=== PATIENT | male | born 1960 | race Caucasian/White ===

== ENCOUNTER 2022-10-22 09:57 | Emergency (ER) | payer BC, SELFPAY ==
--- NOTE | ~2022-10-22 | CT_ITS ---
EXAMINATION: CT brain wo con DATE: 10/22/2022 12:10 INDICATION: Foot drop. TECHNIQUE: Computed tomography (CT) of the head was performed without intravenous contrast. The dose- length product was 605.33 mGy-cm. Automated exposure control and iterative reconstruction technique w ere employed. COMPARISON: None FINDINGS: There is prominent CSF space along the posterior margin of the cerebellum which is isodense to CSF. This may represent atypical appearance secondary to cerebellar atrophy versus chronic subdur al hygroma or hematoma. No ventriculomegaly or midline shift. Normal locke-white differentiation. Ther e is mucosal thickening of the paranasal sinuses. There are surgical changes of the left sphenoid sin us anteriorly. Mastoids are pneumatized. No depressed skull fractures. Midline sagittal images are un remarkable. No acute infarction, hemorrhage or mass. IMPRESSION: 1. Prominent fluid isodense to CSF along the posterior margin of the cerebellum. Mild mass effect. Th is may represent atypical appearance secondary to cerebellar atrophy versus chronic subdural hygroma or hematoma. 2: Moderate sinus disease. Reviewed, dictated and finalized at location A. GRINDER AND POLISHER IMPRESSION: 1. Prominent fluid isodense to CSF along the posterior margin of the cerebellum . Mild mass effect. This may represent atypical appearance secondary to cerebel lar atrophy versus chronic subdural hygroma or hematoma. 2: Moderate sinus disease.
--- NOTE | ~2022-10-22 | XR_ITS ---
EXAMINATION: XR chest 1V DATE: 10/22/2022 12:05 INDICATION: Left facial weakness. TECHNIQUE: A single frontal view of the chest was obtained. COMPARISON: Chest CT 01/01/18 FINDINGS: There is no pneumonia, pleural effusion, or pneumothorax. The heart size is normal. Calcifi ed right hilar lymph nodes are consistent with old granulomatous disease. IMPRESSION: 1. No acute cardiopulmonary disease. Reviewed, dictated and finalized at location A. AL MERCHANDISE MANAGER
[2022-10-22 11:34] VITALS: BP 168/91; PULSE 70; RESP 18; TEMP 36.6; O2SAT 98
--- NOTE | 2022-10-22 11:46 | ECG_ITS ---
Measurements Intervals [place] Rate: 73 P: 64 TN: 140 QRS: 16 QRSD: 85 T: 65 QT: 381 QTc: 422 Interpretive Statements SINUS RHYTHM FREQUENT VENTRICULAR PREMATURE COMPLEXES BORDERLINE R WAVE PROGRESSION, ANTERIOR LEADS BASELINE ARTIFACT- I, II, AVR ABNORMAL ECG NO PREVIOUS ECG AVAILABLE FOR COMPARISON Electronically Signed On 10-22-2022 17:36:34 CHEESE PROCESSOR by Obed Lira D.O.
[2022-10-22 12:04] LABS: Basophils Percent Auto 0.6 % (0.2-1.2); Eosinophils Absolute Auto 0.1 K/mm3 (0-0.3); Eosinophils Percent Auto 1.2 % (0-4.4); Hematocrit 44.9 % (42.0-52.0); Hemoglobin 15.5 g/dL (14.0-18.0); Immature Granulocyte Absolute 0.02 K/mm3 (0.00-0.031); Immature Granulocyte Percent A 0.3 % (0-0.5); Lymphocytes Absolute Auto 1.46 K/mm3 (0.9-3.2); Lymphocytes Percent Auto 21.5 % (18.3-44.2); Mean Corpuscular HGB Conc 34.5 g/dl (32-36); Mean Corpuscular Hemoglobin 33.4 pg (26-34); Mean Corpuscular Volume 96.8 fl (80-100); Mean Platelet Volume 10.5 fl (7.4-10.4); Monocytes Absolute Auto 0.7 K/mm3 (0.1-0.6); Neutrophils Absolute Auto 4.5 K/mm3 (1.3-6.7); Neutrophils Percent Auto 66.4 % (45.5-73.1); Platelet Count Result 201 k/mm3 (150-375); Red Blood Count 4.64 M/mm3 (4.6-6.20); Red Cell Distribution Width 11.5 % (11.5-14.5); White Blood Count 6.8 K/mm3 (4.5-10.0)
[2022-10-22 12:16] LABS: Alanine Aminotransferase 20 U/L (6-50); Albumin Level 4.4 g/dL (3.5-5.1); Alkaline Phosphatase 73 U/L (38-126); Anion Gap 9 mmol/L (8-16); Aspartate Amino Transferase 30 U/L (17-59); Bilirubin,Total 0.6 mg/dL (0.2-1.3); Blood Urea Nitrogen 16 mg/dL (9-20); Calcium 8.7 mg/dL (8.4-10.2); Carbon Dioxide 25 mmol/L (22-30); Chloride 104 mmol/L (98-107); Estimated CRCL calculation 68 ml/min; Estimated Glomerular Filt Rate > 60; Glucose 97 mg/dL (65-110); Potassium 4.6 mmol/L (3.4-5.0); Sodium 138 mmol/L (137-145)
[2022-10-22 12:18] LABS: Prothrombin Time 12.7 Seconds (11.1-14.7)
[2022-10-22 12:19] LABS: Partial Thromboplastin Time 26.3 SECONDS (22.3-36.8)
[2022-10-22 12:28] LABS: Troponin I < 0.012 ng/mL (0.000-0.034)
[2022-10-22 13:04] VITALS: BP 190/107; PULSE 79; RESP 18; O2SAT 100
[2022-10-22 13:06] VITALS: PULSE 77
[2022-10-22 13:17] VITALS: BP 162/108; PULSE 78; RESP 13; O2SAT 97
--- NOTE | 2022-10-22 13:34 | ED.NEUROSD ---
HPI - Neuro Symptoms/Deficit General Chief Complaint: Neuro Symptoms/Deficit Stated Complaint: left droop since saturday Time Seen by Provider: 10/22/22 13:34 Source: patient Mode of arrival: ambulatory Limitations: no limitations History of Present Illness HPI Narrative: Patient is a 62-year-old male with borderline hypertension presenting to the emergency department for evaluation of left-sided facial droop. Patient reports onset of symptoms 5 days ago, , with gradual worsening over the past 5 days. Patient reports associated left facial numbness without tingling sensation. States that he does have some sensation in the left side of the face although it is less when compared to the right. Patient denies recent viral infection but does report recent influenza vaccination 12 days ago. Patient denies fever, chills, cough, shortness of breath. Denies chest pain, abdominal pain. Denies extremity weakness or numbness. No difficulty with ambulation. He denies headache pain or neck pain. Patient denies history of CVA. No recent viral infection. Denies history of herpetic infection, vesicles or blisters on his face currently. Related Data Home Medications Medication Instructions Recorded Confirmed [id number] 120 mcg-lutein tablet PO 08/06/22 150 mcg-herb 50 mg chewable tablet (Alive Men's 50 Plus Multivitamin) aspirin 81 mg chewable tablet 10/22/22 Allergies Allergy/AdvReac Type Severity Reaction Status Date / Time No Known Allergies Allergy Verified 10/22/22 11:36 Review of Systems Review of Systems: CONSTITUTIONAL: Denies fever, chills, or sweats. EYES: Denies visual changes, redness, or discharge. ENT: Denies rhinorrhea, congestion, sore throat, or otalgia. CARDIOVASCULAR: Denies chest pain, palpitations, or edema. RESPIRATORY: Denies cough or dyspnea. GASTROINTESTINAL: Denies abdominal pain, nausea, vomiting, or diarrhea. GENITOURINARY: Denies dysuria or hematuria. SKIN: Denies rash or itching. MUSCULOSKELETAL: Denies back pain, joint pain, or myalgia. NEUROLOGIC: Denies headache, left facial numbness, reports left-sided facial droop, denies extremity weakness or numbness PMFSH Family History Family History Father Family history of heart disease in male family member before age 55, Onset Age: 58 Sibling Hypertension Family history of elevated blood lipids Family history of cardiovascular disease Social History Social History Smoking status: Smoker, status unknown Second hand tobacco smoke exposure: Yes Alcohol intake: current Exam Narrative: GENERAL: Awake, alert, conversant HEAD: Normocephalic, atraumatic. EYES: PERRLA and EOMI. ENT: Nares clear, no rhinorrhea or epistaxis. Mucous membranes moist. NECK: Supple. CHEST: No respiratory distress, breathing even and non labored HEART: Regular rate, sinus rhythm ABDOMEN:Non distended, non tender EXTREMITIES: Normal range of motion. No edema. SKIN: Warm, dry, no rash. NEURO: Alert and oriented x3. Finger to nose intact bilaterally. EOMs intact without nystagmus. There is left-sided facial droop that includes the forehead. Grimace is asymmetric. Intact gross sensation in face. Hearing intact bilaterally. Shoulder shrug intact. Strength 5/5 bilateral upper extremities. Strength 5/5 bilateral lower extremities. Reflexes 2+ patellar. Heel to baker intact bilaterally. Ambulatory exam deferred. Course Vital Signs Vital signs: Vital Signs Temperature 36.6 C 10/22/22 11:34 Pulse Rate 70 10/22/22 11:34 Respiratory Rate 18 10/22/22 11:34 Blood Pressure 168/91 H 10/22/22 11:34 Pulse Oximetry 98 10/22/22 11:34 Oxygen Delivery Room Air 10/22/22 11:34 Temperature 36.6 C 10/22/22 11:34 Pulse Rate 94 10/22/22 15:20 Respiratory Rate 18 10/22/22 15:20 Blood Pressure 148/89 H 10/22/22 1
[2022-10-22 15:20] VITALS: BP 148/89; PULSE 94; RESP 18; O2SAT 100
== END 2022-10-22 15:51 | disposition home or self-care (01) ==
PROVIDERS: Family Medicine; Emergency Provider Emergency Medicine; PCP Emergency Medicine
DX: G51.0 Bell's palsy (principal); G93.0 Cerebral cysts; Z77.22 Contact with and (suspected) exposure to environmental tobacco smoke (acute) (chronic); I49.3 Ventricular premature depolarization; R94.31 Abnormal electrocardiogram [ECG] [EKG]
CPT/HCPCS: 36415; 70450; 71045; 80053; 84484; 85025; 85610; 85730; 93005; 99284

== ENCOUNTER 2023-12-23 08:34 | Outpatient (CLI) | payer BC, SELFPAY ==
--- NOTE | 2023-12-23 08:37 | EST_ITS ---
Patient Info Name: Allen Chinchilla Age: 63 years : 1960 Gender: Male Ht: 70 in Wt: 175 lbs BSA: 1.99 m2 HR: 79 bpm BP: 117 / 78 mmHg Heart Rhythm: Sinus Rhythm Exam Date: 12/23/2023 8:48 AM Exam Location: Echo Lab Patient Status: Outpatient Admit Date: 12/23/2023 Staff Ordering Physician: Allen Humphrey MD Attending Provider: Allen Humphrey MD Exercise Technologist: Rika Henao [facility] Exercise Physician: Obed Lira DO Exam Type: CA stress test treadmill Study Info A treadmill exercise stress test was performed. Summary 1. 1. Negative Ab exercise stress test for ischemic ST changes by ECG criteria. 2. 2. Reduced functional capacity, achieving 7 METs of workload. 3. 3. Appropriate HR response to exercise. 4. 4. Appropriate HR recovery at 1 minute post exercise. 5. 5. No imaging with stress testing. 6. 6. Patient informed of the above results. Protocol: Ab Stress ECG Details Stage: REST Duration (min): 1 min : 9 sec Speed (mph): 0.0 Grade (%): 0 HR (bpm): 79 SBP (mmHg): 117 DBP (mmHg): 78 METS: --- Stage: REST Duration (min): 6 min : 39 sec Speed (mph): 0.0 Grade (%): 0 HR (bpm): 78 SBP (mmHg): 117 DBP (mmHg): 78 METS: --- Stage: STAGE 1 Duration (min): 1 min : 0 sec Speed (mph): 1.7 Grade (%): 10 HR (bpm): 103 SBP (mmHg): 117 DBP (mmHg): 78 METS: --- Stage: STAGE 1 Duration (min): 2 min : 0 sec Speed (mph): 1.7 Grade (%): 10 HR (bpm): 111 SBP (mmHg): 117 DBP (mmHg): 78 METS: --- Stage: STAGE 1 Duration (min): 3 min : 0 sec Speed (mph): 1.7 Grade (%): 10 HR (bpm): 116 SBP (mmHg): 155 DBP (mmHg): 72 METS: --- Stage: STAGE 2 Duration (min): 1 min : 0 sec Speed (mph): 2.5 Grade (%): 12 HR (bpm): 125 SBP (mmHg): 155 DBP (mmHg): 72 METS: --- Stage: STAGE 2 Duration (min): 2 min : 0 sec Speed (mph): 2.5 Grade (%): 12 HR (bpm): 136 SBP (mmHg): 170 DBP (mmHg): 76 METS: --- Stage: STAGE 2 Duration (min): 3 min : 0 sec Speed (mph): 2.5 Grade (%): 12 HR (bpm): 143 SBP (mmHg): 170 DBP (mmHg): 76 METS: --- Stage: RECOVERY Duration (min): 0 min : 59 sec Speed (mph): 0.0 Grade (%): 0 HR (bpm): 130 SBP (mmHg): 185 DBP (mmHg): 73 METS: --- Stage: RECOVERY Duration (min): 1 min : 59 sec Speed (mph): 0.0 Grade (%): 0 HR (bpm): 107 SBP (mmHg): 185 DBP (mmHg): 73 METS: --- Stage: RECOVERY Duration (min): 2 min : 59 sec Speed (mph): 0.0 Grade (%): 0 HR (bpm): 98 SBP (mmHg): 182 DBP (mmHg): 83 METS: --- Stage: RECOVERY Duration (min): 3 min : 37 sec Speed (mph): 0.0 Grade (%): 0 HR (bpm): 93 SBP (mmHg): 182 DBP (mmHg): 83 METS: --- Rest HR: 78 bpm Peak HR: 144 bpm Rest Sys BP: 117 mmHg Peak Sys BP: 185 mmHg Max Pred HR: 155 bpm % Max Pred HR: 93 % Target HR: 132 bpm Max RPP: 26,640 bpm*mmHg Mg Score: 1 Terminat
[2023-12-23 09:51] LABS: Hematocrit 47.7 % (42.0-52.0); Hemoglobin 15.4 g/dL (14.0-18.0); Mean Corpuscular HGB Conc 32.3 g/dl (32-36); Mean Corpuscular Hemoglobin 30.6 pg (26-34); Mean Corpuscular Volume 94.8 fl (80-100); Mean Platelet Volume 10.7 fl (7.4-10.4); Platelet Count Result 195 k/mm3 (150-375); Red Blood Count 5.03 M/mm3 (4.6-6.20); White Blood Count 6.1 K/mm3 (4.5-10.0)
[2023-12-23 10:36] LABS: Alanine Aminotransferase 31 U/L (6-50); Albumin Level 4.4 g/dL (3.5-5.1); Alkaline Phosphatase 92 U/L (38-126); Anion Gap 6 mmol/L (8-16); Aspartate Amino Transferase 33 U/L (17-59); Bilirubin,Total 0.5 mg/dL (0.2-1.3); Blood Urea Nitrogen 22 mg/dL (9-20); Calcium 9.3 mg/dL (8.4-10.2); Carbon Dioxide 27 mmol/L (22-30); Chloride 106 mmol/L (98-107); Cholesterol 210 mg/dL (0-200); Estimated Glomerular Filt Rate > 60; Glucose 102 mg/dL (65-110); HDL Direct 42 mg/dL; Potassium 4.4 mmol/L (3.4-5.0); Sodium 139 mmol/L (137-145); Triglycerides 95 mg/dL (<150)
[2023-12-23 10:47] LABS: LDL Cholesterol Direct 138 mg/dL
[2023-12-23 10:48] LABS: Vitamin D 25 Hydroxy 34.8 ng/mL
[2023-12-23 11:43] LABS: Folic Acid > 20.0 ng/mL (2.76->20)
== END 2023-12-23 08:35 | disposition home or self-care (01) ==
PROVIDERS: PCP Emergency Medicine; Visit Provider Emergency Medicine
DX: R53.83 Other fatigue (principal); I10 Essential (primary) hypertension; E55.9 Vitamin D deficiency, unspecified; Z13.220 Encounter for screening for lipoid disorders; Z12.5 Encounter for screening for malignant neoplasm of prostate; R94.31 Abnormal electrocardiogram [ECG] [EKG]
CPT/HCPCS: 36415; 80053; 80061; 82306; 82607; 82746; 84153; 85027; 93017; G0103

== ENCOUNTER 2024-06-02 08:13 | Outpatient (CLI) | payer BC, SELFPAY ==
--- NOTE | ~2024-06-02 | XR_ITS ---
XR chest 2V Ordering provider: Allen Humphrey MD History: 64 years Male with . YEARLY RECHECK ON LEFT LUNG DENSITY . Comparison: October 22, 2022 FINDINGS: MEDIASTINUM: The cardiac silhouette is not enlarged. LUNGS: No infiltrates, effusions or pneumothorax. OTHER: No free air under the diaphragm. Degenerative changes of the spine. IMPRESSION: No acute cardiopulmonary pathology. Reviewed, dictated and finalized at location A.
== END 2024-06-02 08:14 | disposition home or self-care (01) ==
PROVIDERS: PCP Emergency Medicine; Visit Provider Emergency Medicine
DX: I89.8 Other specified noninfective disorders of lymphatic vessels and lymph nodes (principal)
CPT/HCPCS: 71046

== ENCOUNTER 2024-07-06 09:58 | Outpatient (CLI) | payer BC, SELFPAY ==
--- NOTE | ~2024-07-06 | XR_ITS ---
XR chest 2V Ordering provider: Elisa Meneses, RUNNER ON History: 64 years Male with . HX OF PNEUMONIA . Comparison: June 02, 2024 FINDINGS: MEDIASTINUM: The cardiac silhouette is not enlarged. LUNGS: No effusions or pneumothorax. Bilateral perihilar prominent markings with infiltrate in the pe rihilar and lower lobe areas suggestive of pneumonia. Patchy areas are seen in the upper lobes. OTHER: No free air under the diaphragm. Degenerative changes of the spine. No IMPRESSION: Bilateral lower lobe pneumonia. Follow-up to resolution is advised. Reviewed, dictated and finalized at location A.
== END 2024-07-06 09:59 | disposition home or self-care (01) ==
LOC: ANHIMG 10:00
PROVIDERS: PCP Emergency Medicine; Visit Provider Nurse Practitioner Adult Health
DX: J18.9 Pneumonia, unspecified organism (principal)
CPT/HCPCS: 71046

== ENCOUNTER 2024-07-06 13:49 | Emergency (ER) | payer BC, SELFPAY ==
[2024-07-06] VITALS (10 sets, daily range): BP systolic 130–177; BP diastolic 68–91; PULSE 74–88; RESP 12–33; TEMP 37.1; O2SAT 96–100
--- NOTE | 2024-07-06 14:01 | ED.ALLEREA ---
HPI - Allergic Reaction General Chief complaint: Allergic Reaction Stated complaint: allergic reaction Time Seen by Provider: 07/06/24 13:57 History of Present Illness HPI narrative: Pt took mucinex about 3 hrs ago for congetsion and started to feel like throat was swelling about 30 minutes later. Pt says it did not improved so he called 911. Pt given benadryl IV in route. Pt also had cxr done here earlier today and was told he had pneumonia. Pt denies CP or SOB. Related Data Home Medications Medication Instructions Recorded Confirmed aspirin 81 mg chewable tablet 81 mg PO DAILY 10/22/22 06/23/24 acetaminophen 325 mg tablet 650 mg PO Q6H PRN Pain 06/23/24 06/23/24 Allergies Allergy/AdvReac Type Severity Reaction Status Date / Time No Known Allergies Allergy Verified 06/23/24 16:24 Review of Systems Review of Systems: All systems reviewed & are unremarkable except as noted in HPI and below PMFSH Past Medical History Medical History (Updated 07/06/24 @ 15:55 by Manny Vance III, DO) At risk for hepatitis Chest pain Chronic emphysema syndrome COPD mixed type Debility Nicotine dependence, unspecified, uncomplicated Paresthesia of both hands Solitary pulmonary nodule Vitamin D deficiency Family History Family History Father Family history of heart disease in male family member before age 55, Onset Age: 58 Sibling Hypertension Family history of elevated blood lipids Family history of cardiovascular disease Social History Social History Smoking packs per day: 2 Smoking cigarettes per day: 40.0 Smoking status: Former smoker Tobacco type: cigarettes Second hand tobacco smoke exposure: Yes Smoking end date: 06/12/24 Alcohol intake: former Substance use: never Do You Feel Safe in your Home?: Yes Lack of Transportation: No Lack of Food: Never True Current Housing: I Have Housing Concerned About Future Housing: No Difficulty Paying Gas/Electric Bills: No Difficulty Paying for Meds: No Currently Unemployed: No Education: Associate Degree Difficulty w/ Childcare or Family Care: No Spiritual care concerns: No Exam Const: General: healthy appearing and no acute distress Nutritional Appearance: well nourished Orientation/consciousness: patient oriented x3 Limitations: no limitations HENMT: Head: normal to inspection Face/Nose/Sinus: Normal external nose present Mouth: Yes Normal oral and palatal mucosa present and Yes moist mucous membranes Throat: posterior oropharynx normal Eyes: Conjunctivae: conjunctivae normal Pupils: Equal, round and reactive pupils present EOM: EOMs intact bilaterally Neck: Neck: normal visual inspection Resp: Effort & Inspection: normal respiratory effort Auscultation: clear to auscultation bilaterally Cardio: Rate: regular rate Rhythm: regular rhythm GI: GI Palp: Yes Soft to palpation and No Tenderness to palpation present (GI) Auscultation: normal bowel sounds Skin: General skin exam: normal color Rashes: no rashes Wounds: no wounds Neuro: General: patient oriented x3, moves all extremities, no focal motor deficits and CN's II-XI intact bilaterally Cranial nerves: Yes Nystagmus not present Speech: normal speech Extrem: General: normal to inspection Psych: Mental Status: mental status grossly normal Affect: normal affect Attitude: cooperative Course Vital Signs Vital signs: Vital Signs Temperature 98.8 F 07/06/24 13:53 Pulse Rate 87 07/06/24 13:53 Respiratory Rate 23 H 07/06/24 13:53 Blood Pressure 177/91 H 07/06/24 13:53 Pulse Oximetry 98 07/06/24 13:53 Oxygen Delivery Room Air 07/06/24 13:53 Temperature 98.8 F 07/06/24 17:11 Pulse Rate 88 07/06/24 17:11 Respiratory Rate 19 07/06/24 17:11 Blood Pressure 130/73 07/06/24 17:11 Pulse Oximetry 97
[2024-07-06] MEDS: methylPREDNISolone SOD SUCC 125 MG VIAL IV PUSH (14:07)
[2024-07-06] MEDS: FAMOTIDINE 20 MG/2 ML VIAL IV PUSH (14:07)
[2024-07-06] MEDS: IPRATROPIUM 0.5 MG/ALBUTEROL SULFATE 2.5 MG AMPUL.NEB 3 ML INHALATION (14:28)
[2024-07-06 15:11] LABS: Lactic Acid Reflex 1.5 mmol/L (0.7-2.0)
[2024-07-06] MEDS: levoFLOXacin 750 MG/D5W 150 ML 750 MG/150 ML BAG 100 MG IVPB (15:18)
[2024-07-06 15:30] LABS: Basophils Absolute Auto 0.1 K/mm3 (0.0-0.1); Basophils Percent Auto 0.8 % (0.2-1.2); Eosinophils Absolute Auto 0.1 K/mm3 (0-0.3); Eosinophils Percent Auto 0.8 % (0-4.4); Hematocrit 36.6 % (42.0-52.0); Hemoglobin 11.4 g/dL (14.0-18.0); Immature Granulocyte Absolute 0.04 K/mm3 (0.00-0.031); Immature Granulocyte Percent A 0.5 % (0-0.5); Lymphocytes Absolute Auto 0.69 K/mm3 (0.9-3.2); Lymphocytes Percent Auto 9.1 % (18.3-44.2); Mean Corpuscular HGB Conc 31.1 g/dl (32-36); Mean Corpuscular Hemoglobin 29.1 pg (26-34); Mean Corpuscular Volume 93.4 fl (80-100); Mean Platelet Volume 9.3 fl (7.4-10.4); Monocytes Percent Auto 13.6 % (2.6-8.5); Neutrophils Absolute Auto 5.7 K/mm3 (1.3-6.7); Neutrophils Percent Auto 75.2 % (45.5-73.1); Platelet Count Result 423 k/mm3 (150-375); Red Blood Count 3.92 M/mm3 (4.6-6.20); White Blood Count 7.6 K/mm3 (4.5-10.0)
[2024-07-06 15:39] LABS: Prothrombin Time 14.1 Seconds (11.1-14.7)
[2024-07-06 15:49] LABS: Alanine Aminotransferase 28 U/L (6-50); Alkaline Phosphatase 146 U/L (38-126); Anion Gap 12 mmol/L (4-12); Aspartate Amino Transferase 33 U/L (17-59); Bilirubin,Total 0.7 mg/dL (0.2-1.3); Blood Urea Nitrogen 16 mg/dL (9-20); CRP 2.4 mg/dL (<1.0); Calcium 8.6 mg/dL (8.4-10.2); Carbon Dioxide 25 mmol/L (22-30); Chloride 98 mmol/L (98-107); Estimated CRCL calculation 61 ml/min; Estimated Glomerular Filt Rate > 60; Glucose 129 mg/dL (65-110); Potassium 3.5 mmol/L (3.4-5.0); Sodium 135 mmol/L (137-145)
== END 2024-07-06 17:12 | disposition home or self-care (01) ==
PROVIDERS: Emergency Provider Emergency Medicine; PCP Emergency Medicine
DX: R22.1 Localized swelling, mass and lump, neck (principal); T48.4X5A Adverse effect of expectorants, initial encounter; J18.9 Pneumonia, unspecified organism; J43.9 Emphysema, unspecified; J44.9 Chronic obstructive pulmonary disease, unspecified; E55.9 Vitamin D deficiency, unspecified; Z87.891 Personal history of nicotine dependence; Z79.82 Long term (current) use of aspirin; Z79.899 Other long term (current) drug therapy; Z79.02 Long term (current) use of antithrombotics/antiplatelets
CPT/HCPCS: 36415; 71046; 80053; 83605; 85025; 85610; 85730; 86140; 87040; 94640; 96365; 96375; 99284; J1956; J2919

== ENCOUNTER 2024-10-08 12:31 | Emergency (ER) | payer BC, SELFPAY ==
--- NOTE | ~2024-10-08 | CT_ITS ---
EXAMINATION: CT soft tissue neck w con DATE: 10/08/2024 15:22 INDICATION: Left submandibular edema. TECHNIQUE: Computed tomography (CT) of the neck was performed with 75 mL Omnipaque-350 intravenous co ntrast. Automated exposure control and iterative reconstruction technique were employed. The dose-beverly gth product was 541.38 mGy-cm. COMPARISON: None FINDINGS: There is moderate emphysema. The major salivary glands are normal. There are no pathologica lly enlarged lymph nodes. There is plaque in the proximal internal carotid arteries with 0% stenosis relative to normal distal artery lumen diameters. There is plate and screw fixation of anterior wall of left frontal sinus. There is mild mucosal thickening in the paranasal sinuses. There is severe cer vical spondylosis. IMPRESSION: 1. No etiology for the patient's symptoms. Reviewed, dictated and finalized at location A. MACHINIST
[2024-10-08 12:42] VITALS: BP 118/62; PULSE 66; RESP 19; TEMP 36.3; O2SAT 99
--- NOTE | 2024-10-08 14:12 | ED_ITS ---
HPI - General Adult General Chief complaint: Unspecified <Gill Valdez PA-C - Last Filed: 10/08/24 14:14> Stated complaint: swelling in neck <Gill Valdez PA-C - Last Filed: 10/08/24 14:14> Time Seen by Provider: 10/08/24 16:58 <Gill Valdez PA-C - Last Filed: 10/08/24 14:14> Focused HPI: 64-year-old male with history of CAD, mi in May 2024, s/p cardiac stent placement in 2023 presents to emergency department for left submandibular swelling for 10 days. Patient states the swelling has progr essively worsened. He states he is now having difficulty breathing when he turns his neck to the left and puts pressure on the area. Denies sore throat, dental pain, facial pain. States he has never had this happen before. He does note that he started isosorbide 2 weeks prior to the symptom, otherwise no medication changes. GENERAL: Well-appearing, well-nourished, and in no acute distress. HEAD: Normocephalic, atraumatic. Mild left-sided submandibular edema. No dental caries. Floor mouth is soft or crepitus. Posterior pharynx is unremarkable. Airway intact. CHEST: Clear to auscultation. ?No respiratory distress. HEART: Regular rate and rhythm.? NEURO: ?Alert and oriented x3. Patient screened in triage and initial orders placed.? ?Additional care and disposition to be based upon?diagnostic testing and treatment. <Gill Valdez PA-C - Last Filed: 10/08/24 14:14> Focused HPI: 64-year-old male with history of CAD, mi in May 2024, s/p cardiac stent placement in 2023 presents to emergency department for left submandibular swelling for 10 days. Patient states the swelling has progressively worsened. He states he is now having difficulty breathing when he turns his neck to the left and puts pressure on the area. Denies sore throat, dental pain, facial pain. States he has never had this happen before. He does note that he started isosorbide 2 weeks prior to the symptom, otherwise no medication changes. GENERAL: Well-appearing, well-nourished, and in no acute distress. HEAD: Normocephalic, atraumatic. Mild left-sided submandibular edema. No dental caries. Floor mouth is soft or crepitus. Posterior pharynx is unremarkable. Airway intact. CHEST: Clear to auscultation. ?No respiratory distress. HEART: Regular rate and rhythm.? NEURO: ?Alert and oriented x3. Patient screened in triage and initial orders placed.? ?Additional care and disposition to be based upon?diagnostic testing and treatment. <GABY Rausch Last Filed: 10/08/24 18:31> Source: patient <GABY Rausch Last Filed: 10/08/24 18:31> Mode of arrival: ambulatory <GABY Rausch Filed: 10/08/24 18:31> Limitations: no limitations <GABY Rausch Last Filed: 10/08/24 18:31> History of Present Illness HPI narrative: Agree with above HPI. <GABY Rausch Last Filed: 10/08/24 18:31> Related Data Home medications: Home Medications Medication Instructions Recorded Confirmed aspirin 81 mg chewable tablet 81 mg PO DAILY 10/22/22 07/20/24 acetaminophen 500 mg tablet 1,000 mg PO Q6H PRN 07/07/24 07/20/24 (Acetaminophen Extra Strength) food supplemt, lactose-reduced 1 ea PO DAILY 07/07/24 07/20/24 (Ensure oral liquid) [id number] 120 mcg-lutein 1 tablet PO DAILY 07/07/24 07/20/24 150 mcg-herb 50 mg chewable tablet (Alive Men's 50 Plus Multivitamin) amiodarone 200 mg tablet (Pacerone) 200 mg PO DAILY 07/20/24 <GABY Martinez Last Filed: 10/08/24 14:14> Allergies/adverse reactions: Allergies Allergy/AdvReac Type Severity Reaction Status Date / Time guaifenesin [From Mucinex] Allergy Severe Hives Verified 07/20/24 15:33 <GABY Martinez Last Filed: 10/08/24 14:14> Review of Systems Review of Systems: All systems reviewed & are unremarkable except as noted in HPI. <Hallie Back PA-C - Last Filed: 10/08/24 18:31> All systems reviewed & are unremarkable except as noted in HPI and below <Hallie Back PA-C - Last Filed: 10/08/24 18:31> PMFSH Past Medical History Medical History: Medical History At risk for hepatitis Chest pain Chronic emphysema syndrome COPD mixed type Debility Nicotine dependence, unspecified, uncomplicated Paresthesia of both hands Solitary pulmonary nodule Vitamin D deficiency <Gill Valdez PA-C - Last Filed: 10/08/24 14:14> Family History Family History: Family History Father Family history of heart disease in male family member before age 55, Onset Age: 58 Family history of cardiovascular disease Sibling Family history of cardiovascular disease Family history of elevated blood lipids Hypertension Diabetes mellitus Breast cancer <Gill Valdez PA-C - Last Filed: 10/08/24 14:14> Social History Social History: Social History Smoking packs per day: 2 Smoking cigarettes per day: 40.0 Years smoked: 50 Smoking pack-years: 100.00 Smoking status: Former smoker Tobacco type: cigarettes Second hand tobacco smoke exposure: Yes Smoking end date: 06/13/24 Alcohol intake: former Substance use: never Do You Feel Safe in your Home?: Yes Lack of Transportation: No Lack of Food: Never True Current Housing: I Have Housing Concerned About Future Housing: No Difficulty Paying Gas/Electric Bills: No Difficulty Paying for Meds: No Currently Unemployed: No Education: Trade/Vocational Certificate Difficulty w/ Childcare or Family Care: No Spiritual care concerns: No <Gill Valdez PA-C - Last Filed: 10/08/24 14:14> Exam Narrative: GENERAL: Well appearing, well-nourished, non-toxic, in no acute distress. HEAD: Normocephalic, atraumatic. ENT: Area of loose skin vs submandibular swelling in L anterior neck. No palpable lymphadenopathy, induration, fluctuance, no overlying skin erythema or warmth. No overlying skin rash. No stridor distress. No trismus. No inner mucosal lesions or swelling. RESPIRATORY: Airway patent, respirations nonlabored. No distress. CARDIOVASCULAR: Regular rate and rhythm without murmurs, rubs, or gallops. MUSCULOSKELETAL: Moves all extremities. No gross deformities. SKIN: Warm, dry, normal color. NEURO: A&O X3. Speech clear PSYCHIATRIC: Appropriate mood and affect. Normal interaction. <GABY Rausch Last Filed: 10/08/24 18:31> Course Vital Signs Vital signs: Vital Signs Temperature 97.3 F L 10/08/24 12:42 Pulse Rate 66 10/08/24 12:42 Respiratory Rate 19 10/08/24 12:42 Blood Pressure 118/62 10/08/24 12:42 Pulse Oximetry 99 10/08/24 12:42 Temperature 97.8 F 10/08/24 17:07 Pulse Rate 59 L 10/08/24 17:07 Respiratory Rate 20 10/08/24 17:07 Blood Pressure 120/74 10/08/24 17:07 Pulse Oximetry 98 10/08/24 17:07 Oxygen Delivery Room Air 10/08/24 16:57 <GABY Martinez Last Filed: 10/08/24 14:14> Vital Signs Temperature 97.3 F L 10/08/24 12:42 Pulse Rate 66 10/08/24 12:42 Respiratory Rate 19 10/08/24 12:42 Blood Pressure 118/62 10/08/24 12:42 Pulse Oximetry 99 10/08/24 12:42 Temperature 97.8 F 10/08/24 17:07 Pulse Rate 59 L 10/08/24 17:07 Respiratory Rate 20 10/08/24 17:07 Blood Pressure 120/74 10/08/24 17:07 Pulse Oximetry 98 10/08/24 17:07 Oxygen Delivery Room Air 10/08/24 16:57 <GABY Rausch Filed: 10/08/24 18:31> Medical Decision Making MDM Narrative Medical decision making narrative: Patient presented to ED with 10 day history of left submandibular swelling. Vital signs are stable upon arrival. Patient is in no acute distress. Exam is fairly unremarkable. Appears more as loose skin in left submandibular region versus actual swelling. There is no palpable deformities. No pain or tenderness. No evidence of airway compromise or respiratory distress. No mucosal concerns. No other peripheral edema. Basic laboratory studies were obtained unremarkable. No leukocytosis. CT soft tissue neck was obtained and abnormalities noted. No lymphadenopathy. Salivary glands are normal. No airway swelling. No abnormality of internal carotid artery. Discussed lab and imaging findings, overall reassuring workup with patient. Patient and at bedside were able to look up several pictures of patient throughout the past few months and into last year and patient has had similar swelling documented in these pictures. He notes that he has gained weight to recently which may also be attributing to this being more pronounced. Feel he is safe for discharge home with close outpatient follow-up. Advised to have follow-up with PCP for further evaluation. Given return precautions. Discharged in stable condition. <Hallie Back PA-C - Last Filed: 10/08/24 18:31> Medical Records Medical records reviewed: Yes I reviewed the external patient's medical records. <Hallie whitaker PA-C - Last Filed: 10/08/24 18:31> Vital Signs Vital Signs: Vital Signs Temperature 97.3 F L 10/08/24 12:42 Pulse Rate 66 10/08/24 12:42 Respiratory Rate 19 10/08/24 12:42 Blood Pressure 118/62 10/08/24 12:42 Pulse Oximetry 99 10/08/24 12:42 Temperature 97.8 F 10/08/24 17:07 Pulse Rate 59 L 10/08/24 17:07 Respiratory Rate 20 10/08/24 17:07 Blood Pressure 120/74 10/08/24 17:07 Pulse Oximetry 98 10/08/24 17:07 Oxygen Delivery Room Air 10/08/24 16:57 <Gill Valdez PA-C - Last Filed: 10/08/24 14:14> Vital Signs Temperature 97.3 F L 10/08/24 12:42 Pulse Rate 66 10/08/24 12:42 Respiratory Rate 19 10/08/24 12:42 Blood Pressure 118/62 10/08/24 12:42 Pulse Oximetry 99 10/08/24 12:42 Temperature 97.8 F 10/08/24 17:07 Pulse Rate 59 L 10/08/24 17:07 Respiratory Rate 20 10/08/24 17:07 Blood Pressure 120/74 10/08/24 17:07 Pulse Oximetry 98 10/08/24 17:07 Oxygen Delivery Room Air 10/08/24 16:57 <Hallie Back PA-C - Last Filed: 10/08/24 18:31> Lab Data Lab results reviewed: Yes I reviewed the patient's lab results. <Hallie Back PA-C - Last Filed: 10/08/24 18:31> Result diagrams: 10/08/24 15:10 10/08/24 15:16 <GABY Martinez Last Filed: 10/08/24 14:14> Labs: Lab Results 10/08/24 10/08/24 Range/Units 15:10 15:16 WBC 7.0 (4.5-10.0) K/mm3 RBC 4.42 L (4.6-6.20) M/mm3 Hgb 13.7 L (14.0-18.0) g/dL Hct 40.8 L (42.0-52.0) % MCV 92.3 (80-100) fl MCH 31.0 (26-34) pg MCHC 33.6 (32-36) g/dl RDW 12.5 (11.5-14.5) % Plt Count 217 (150-375) k/mm3 MPV 10.3 (7.4-10.4) fl Immature Gran % (Auto) 0.1 (0-0.5) % Neut % (Auto) 60.2 (45.5-73.1) % Lymph % (Auto) 23.4 (18.3-44.2) % [place] % (Auto) 13.6 H (2.6-8.5) % Eos % (Auto) 2.0 (0-4.4) % Baso % (Auto) 0.7 (0.2-1.2) % Lymph # (Auto) 1.63 (0.9-3.2) K/mm3 [place] # (Auto) 1.0 H (0.1-0.6) K/mm3 Eos # (Auto) 0.1 (0-0.3) K/mm3 Baso # (Auto) 0.1 (0.0-0.1) K/mm3 Abs Immat Gran (auto) 0.01 (0.00-0.031) K/mm3 Absolute Neuts (auto) 4.2 (1.3-6.7) K/mm3 Absolute Nucleated RBC 0.000 (0.0-0.012) K/mm3 Nucleated RBC % 0.0 (0.0-0.2) % Sodium 137 (137-145) mmol/L Potassium 4.4 (3.4-5.0) mmol/L Chloride 101 (98-107) mmol/L Carbon Dioxide 29 (22-30) mmol/L Anion Gap 7 (4-12) mmol/L BUN 16 (9-20) mg/dL Creatinine 1.10 1.30 (0.7-1.3) mg/dL Estim Creat Clear Calc 61 52 ml/min Estimated GFR > 60 55 L (59 - ) Glucose 136 H (65-110) mg/dL Calcium 9.3 (8.4-10.2) mg/dL Total Bilirubin 0.5 (0.2-1.3) mg/dL AST 39 (17-59) U/L ALT 40 (6-50) U/L Alkaline Phosphatase 88 (38-126) U/L Total Protein 8.0 (6.3-8.2) g/dL Albumin 4.4 (3.5-5.1) g/dL <Gill Valdez PA-C - Last Filed: 10/08/24 14:14> Lab Results 10/08/24 10/08/24 Range/Units 15:10 15:16 WBC 7.0 (4.5-10.0) K/mm3 RBC 4.42 L (4.6-6.20) M/mm3 Hgb 13.7 L (14.0-18.0) g/dL Hct 40.8 L (42.0-52.0) % MCV 92.3 (80-100) fl MCH 31.0 (26-34) pg MCHC 33.6 (32-36) g/dl RDW 12.5 (11.5-14.5) % Plt Count 217 (150-375) k/mm3 MPV 10.3 (7.4-10.4) fl Immature Gran % (Auto) 0.1 (0-0.5) % Neut % (Auto) 60.2 (45.5-73.1) % Lymph % (Auto) 23.4 (18.3-44.2) % [place] % (Auto) 13.6 H (2.6-8.5) % Eos % (Auto) 2.0 (0-4.4) % Baso % (Auto) 0.7 (0.2-1.2) % Lymph # (Auto) 1.63 (0.9-3.2) K/mm3 [place] # (Auto) 1.0 H (0.1-0.6) K/mm3 Eos # (Auto) 0.1 (0-0.3) K/mm3 Baso # (Auto) 0.1 (0.0-0.1) K/mm3 Abs Immat Gran (auto) 0.01 (0.00-0.031) K/mm3 Absolute Neuts (auto) 4.2 (1.3-6.7) K/mm3 Absolute Nucleated RBC 0.000 (0.0-0.012) K/mm3 Nucleated RBC % 0.0 (0.0-0.2) % Sodium 137 (137-145) mmol/L Potassium 4.4 (3.4-5.0) mmol/L Chloride 101 (98-107) mmol/L Carbon Dioxide 29 (22-30) mmol/L Anion Gap 7 (4-12) mmol/L BUN 16 (9-20) mg/dL Creatinine 1.10 1.30 (0.7-1.3) mg/dL Estim Creat Clear Calc 61 52 ml/min Estimated GFR > 60 55 L (59 - ) Glucose 136 H (65-110) mg/dL Calcium 9.3 (8.4-10.2) mg/dL Total Bilirubin 0.5 (0.2-1.3) mg/dL AST 39 (17-59) U/L ALT 40 (6-50) U/L Alkaline Phosphatase 88 (38-126) U/L Total Protein 8.0 (6.3-8.2) g/dL Albumin 4.4 (3.5-5.1) g/dL <Hallie Back PA-C - Last Filed: 10/08/24 18:31> Imaging Data Attestation: I personally reviewed and interpreted this imaging study as follows: < Hallie Back PA-C - Last Filed: 10/08/24 18:31> Radiologist's impression: ITS Impressions Soft Tissue Neck CT 10/08/24 15:23 IMPRESSION: 1. No etiology for the patient's symptoms. <Hallie Back PA-C - Last Filed: 10/08/24 18:31> Discharge Plan Discharge Clinical Impression: Submandibular swelling <GABY Martinez Last Filed: 10/08/24 14:14> Patient Disposition: Home, Self-Care <GABY Martinez Last Filed: 10/08/24 14:14> Condition: Stable <Gill Valdez PA-C - Last Filed: 10/08/24 14:14> Instructions: Antibiotic Form, Lymphadenopathy (ED) <Gill Valdez PA-C - Last Filed: 10/08/24 14:14> Additional Instructions: Your work up here was reassuring. Your imaging did not show any ab normalities within your neck. Follow-up with your primary care doctor for further evaluation. Recommend to take pictures to monitor swelling. You may try warm compresses to neck to help with swelling. Return to the ED if you experience worsening or severe symptoms/swelling, difficulty breathing, unable to keep down food or drink, or any other symptoms of concern. <Gill Valdez PA-C - Last Filed: 10/08/24 14:14> Prescriptions: No Action Ensure Liquid 1 ea PO DAILY acetaminophen [Acetaminophen Extra Strength] 500 mg tablet 1,000 mg PO Q6H PRN Alive Men's 50 Plus Multivit 120 mcg-150 mcg -50 mg tablet,chewable 1 tablet PO DAILY amiodarone [Pacerone] 200 mg tablet 200 mg PO DAILY atorvastatin 80 mg tablet 80 mg PO HS Qty: 90 2RF furosemide 20 mg tablet 20 mg PO [id number] Qty: 180 2RF benzonatate 200 mg capsule 200 mg PO TID Qty: 20 0RF aspirin 81 mg Tablet,Chewable 81 mg PO DAILY ramelteon 8 mg tablet See Rx Instructions .ROUTE .COMPLEX Qty: 90 2RF Dose Instruction: TAKE 1 TABLET BY MOUTH AT BEDTIME Rx Instructions: TAKE 1 TABLET BY MOUTH AT BEDTIME Brilinta 90 mg tablet 90 mg PO BID Qty: 180 2RF carvedilol [Coreg] 3.125 mg Tablet 6.25 mg PO BIDAC Qty: 60 0RF <Gill Valdez PA-C - Last Filed: 10/08/24 14:14> Follow-up/Referrals: Allen Humphrey MD [Primary Care Provider] - <Gill Valdez PA-C - Last Filed: 10/08/24 14:14> Time of Disposition: 17:38 <Gill Valdez PA-C - Last Filed: 10/08/24 14:14> 17:38 <Hallie Back PA-C - Last Filed: 10/08/24 18:31>
[2024-10-08 15:17] LABS: Basophils Absolute Auto 0.1 K/mm3 (0.0-0.1); Basophils Percent Auto 0.7 % (0.2-1.2); Eosinophils Absolute Auto 0.1 K/mm3 (0-0.3); Hematocrit 40.8 % (42.0-52.0); Hemoglobin 13.7 g/dL (14.0-18.0); Immature Granulocyte Absolute 0.01 K/mm3 (0.00-0.031); Immature Granulocyte Percent A 0.1 % (0-0.5); Lymphocytes Absolute Auto 1.63 K/mm3 (0.9-3.2); Lymphocytes Percent Auto 23.4 % (18.3-44.2); Mean Corpuscular HGB Conc 33.6 g/dl (32-36); Mean Corpuscular Volume 92.3 fl (80-100); Mean Platelet Volume 10.3 fl (7.4-10.4); Monocytes Percent Auto 13.6 % (2.6-8.5); Neutrophils Absolute Auto 4.2 K/mm3 (1.3-6.7); Neutrophils Percent Auto 60.2 % (45.5-73.1); Platelet Count Result 217 k/mm3 (150-375); Red Blood Count 4.42 M/mm3 (4.6-6.20); Red Cell Distribution Width 12.5 % (11.5-14.5)
[2024-10-08 15:17] LABS: Estimated CRCL calculation 52 ml/min; Estimated Glomerular Filt Rate 55
[2024-10-08 15:35] LABS: Alanine Aminotransferase 40 U/L (6-50); Albumin Level 4.4 g/dL (3.5-5.1); Alkaline Phosphatase 88 U/L (38-126); Anion Gap 7 mmol/L (4-12); Aspartate Amino Transferase 39 U/L (17-59); Bilirubin,Total 0.5 mg/dL (0.2-1.3); Blood Urea Nitrogen 16 mg/dL (9-20); Calcium 9.3 mg/dL (8.4-10.2); Carbon Dioxide 29 mmol/L (22-30); Chloride 101 mmol/L (98-107); Estimated CRCL calculation 61 ml/min; Estimated Glomerular Filt Rate > 60; Glucose 136 mg/dL (65-110); Potassium 4.4 mmol/L (3.4-5.0); Sodium 137 mmol/L (137-145)
[2024-10-08 16:57] VITALS: BP 120/74; PULSE 58; RESP 20; TEMP 36.6; O2SAT 98
[2024-10-08 17:06] VITALS: RESP 20; O2SAT 98
[2024-10-08 17:07] VITALS: BP 120/74; PULSE 59; RESP 20; TEMP 36.6; O2SAT 98
== END 2024-10-08 18:00 | disposition home or self-care (01) ==
PROVIDERS: Physician Assistant; Emergency Provider Physician Assistant; PCP Emergency Medicine
DX: R22.1 Localized swelling, mass and lump, neck (principal); I25.10 Atherosclerotic heart disease of native coronary artery without angina pectoris; I25.2 Old myocardial infarction; E55.9 Vitamin D deficiency, unspecified; Z87.891 Personal history of nicotine dependence
CPT/HCPCS: 36415; 70491; 80053; 85025; 99284; Q9967

== ENCOUNTER 2024-11-02 11:15 | Outpatient (RCR) | payer BC, SELFPAY | END 2024-11-23 07:54 | disposition home or self-care (01) | LOC: ANHCPREHAB 11:15 | PROVIDERS: PCP Emergency Medicine; Visit Provider Internal Medicine Cardiovascular Disease | DX: Z98.61 Coronary angioplasty status (principal) | CPT/HCPCS: 93798 ==

== ENCOUNTER 2025-01-20 13:07 | Outpatient (CLI) | payer BC, SELFPAY ==
--- NOTE | ~2025-01-20 | CT_ITS ---
EXAMINATION:CT diagnostic chest wo con DATE: 01/20/2025 14:53 INDICATION: Other forms of dyspnea. TECHNIQUE: Computed tomography (CT) of the chest was performed without intravenous contrast. Automate d exposure control and iterative reconstruction technique were employed. The dose-length product (DLP ) was 147.05 mGy-cm. COMPARISON: Chest CT 01/01/2018 FINDINGS: There is severe emphysema. There are many scattered 2-3 mm nodules in the lungs, likely kurt ign. There is mild atelectasis bilaterally. Calcified right lung nodules and calcified right hilar ly mph nodes are consistent with old edematous disease. No pleural effusion. The heart size is normal. T here are coronary artery calcifications. No pericardial effusion. There is a small sliding hiatal her merlin. Calcifications in the liver and spleen are consistent with old granulomatous disease. There is m ild chronic anterior wedging of the vertebral bodies. There is moderate thoracic spondylosis and shayne re lumbar spondylosis. IMPRESSION: 1. Severe emphysema. 2. Worsened many scattered 2-3 mm nodules in the lungs, likely infection. Reviewed, dictated and finalized at location A. CHARGE BOOKKEEPER
--- OUTSIDE RECORDS SUMMARY | 2025-01-20 14:43 | XMS_ITS | Clinical Summary ---
Author Organization [facility] Address [address] [place] [id number] Care Team Providers Care Rib Knitter Name Role Phone Unavailable Primary Care Provider Unavailabl e Social History Tobacco Use Types Packs/Day Years Used Date Smoking Tobacco: Never Assessed Sex and Gender Information Value Date Recorded Sex Assigned at Not on file Legal Sex Male 11:16 AM EDT Gender Identity Not on file Sexual Orientation Not on file Plan of Treatment Not on file
--- OUTSIDE RECORDS SUMMARY | 2025-01-20 14:43 | XMS_ITS | Referral Summary ---
Author Organization [facility] Virtual Care Address [address] [place] [address] Phone Care Team Providers Care Shade Classifier Name Role Phone Allen Humphrey MD Primary Care Provide r Allen Humphrey MD Unavailable [phone] Encounters Date Type Department Care Team Description 01/13/2025 10:00 AM WIRE FRAME DIPPER Office Visit [facility] Cardiology [address] [place] [address] [place] [address] [phone] Ricci Mclain MD Coronary artery disease involving [place] coronary artery of [place] heart without angina pectoris (Primary Dx); History of ST elevation myocardial infarction (STEMI); Status post angioplasty with stent; History of sudden cardiac arrest successfully resuscitated; Shortness of breath; History of tobacco abuse 11/03/2024 11:15 AM WIRE FRAME DIPPER Ancillary Procedure [facility] Cardiology [address] [place] [address] [place] [address] [phone] elevation myocardial infarction (STEMI) 10/28/2024 Telephone [facility] Cardiology [address] [place] [address] [place] [address] [phone] Jose Meneses NP return to work letter 10/26/2024 8:30 AM WIRE FRAME DIPPER Office Visit [facility] Medical Group Cardiology [address] [place] [address] Jose Meneses NP History of ST elevation myocardial infarction (STEMI) (Primary Dx); Coronary artery disease of [place] artery of [place] heart with stable angina pectoris (HCC); Recently quit using tobacco; Shortness of breath; Chest pressure from Last 3 Months Allergies Active Allergy Reactions Criticality Noted Date Comments Guaifenesin Angioedema High 08/31/2024 Medications ticagrelor (BRILINTA) 90 mg tabletIndicati ons:Coronary artery disease involving [place] coronary artery of [place] heart without angina pectoris Take 1 tablet (90 mg total) by mouth 2 (two) times a day 180 tablet 3 07/06/20 24 Active atorvastatin (LIPITOR) 80 mg tabletIndicati ons:Coronary artery disease involving [place] coronary artery of [place] heart without angina pectoris Take 1 tablet (80 mg total) by mouth nightly 90 tablet 3 07/06/20 24 2024 Active carvediloL (COREG) 6.25 mg tabletIndicati ons:Coronary artery disease involving [place] coronary artery of [place] heart without angina pectoris TAKE 1 TABLET BY MOUTH TWICE DAILY WITH MEALS 180 tablet 2 12/30/19 25 Active aspirin 81 mg enteric coated tablet Take 1 tablet (81 mg total) by mouth daily 30 tablet 01/13/20 25 2025 Active losartan (COZAAR) 25 mg tablet Take 1 tablet (25 mg total) by mouth daily 30 tablet 01/13/20 25 2025 Active empagliflozin (JARDIANCE) 10 mg tablet Take 1 tablet (10 mg total) by mouth daily 30 tablet 01/13/20 25 Active spironolactone (ALDACTONE) 25 mg tablet Take 1 tablet (25 mg total) by mouth daily 30 tablet 01/13/20 25 2025 Active aspirin 81 mg chewable tablet Take 1 tablet (81 mg total) by mouth daily 30 tablet 3 06/23/20 24 2024 Discontinued(A lternate therapy) albuterol 2.5 mg /3 mL (0.083 %) nebulizer solution Take 3 mL (2.5 mg total) by nebulization every 6 (six) hours as needed for wheezing 06/22/20 24 2024 Discontinued(P atient Reported) nitroglycerin (NITROSTAT) 0.[address] 1 tablet (0.4 mg total) under the tongue every 5 (five) minutes as needed for chest pain May repeat dose q 5 min, up to 3 doses total 25 tablet 2 09/17/20 24 2024 Discontinued(T herapy completed) isosorbide mononitrate ER (IMDUR) 60 mg 24 hr tablet Take 1 tablet (60 mg total) by mouth daily 30 tablet 11 09/25/20 24 2024 Discontinued(T herapy completed) carvediloL (COREG) 6.25 mg tabletIndicati ons:Coronary artery disease involving [place] coronary artery of [place] heart without angina pectoris Take 1 tablet (6.25 mg total) by mouth 2 (two) times a day with meals 180 tablet 11/19/20 24 2024 Discontinued Active Problems Problem Noted Date Diagnosed Date Anoxic brain damage 06/16/2024 Ventricular fibrillation (CMS/HCC) 06/13/2024 Social History Tobacco Use Types Packs/Day Years Used Date Smoking Tobacco: Former Cigarettes 1.5 15 Q uit: 06/13/2024 Smokeless Tobacco: Never [facility] [employer] Answer Date Recorded In the past 12 months has [employer]ons[employer], gas, oil, or water [employer] threatened to shut off services in your home? No 06/15/2024 Social Connection and Isolat ion Panel [NHANES] Answer Date Recorded In a typical week, how many times do you talk on the phone with family, friends, or neighbors? More than three times a week 06/15/2024 How often do you get togethe r with friends or relatives? More than three times a week 06/15/2024 How often do you attend chur ch or church services? Never 06/15/2024 Do you belong to any clubs o r organizations such as latter day groups, unions, fraternal or athletic groups, or school groups? No 06/15/2024 How often do you attend meet ings of the clubs or organizations you belong to? Never 06/15/2024 Are you , , di vorced, , never , or living with a partner? 06/15/2024 Overall Financial Resource Strain (CARDIA) Answe r Date Recorded How hard is it for you to pa y for the very basics like food, housing, medical care, and heating? Not hard at all 06/15/2024 Hunger Vital Sign Answer Date Recorded Within the past 12 months, y ou worried that your food would run out before you got the money to buy more. Never true 06/15/20 24 Within the past 12 months, t he food you bought just didn't last and you didn't have money to get more. Never true 06/15/2024 PRAPARE - Transportation Answer Date Re corded In the past 12 months, has l ack of transportation kept you from medical appointments or from getting medications? No 05/26 In the past 12 months, has l ack of transportation kept you from meetings, work, or from getting things needed for daily living? No 06/15/2024 Housing Stability Vital Sign Answer Srini e Recorded In the last 12 months, was t here a time when you were not able to pay the mortgage or rent on time? No 06/15/2024 In the past 12 months, how m any times have you moved where you were living? 0 06/15/2024 At any time in the past 12 m onths, were you homeless or living in a penitentiary (including now)? No 06/15/2024 Personal Safety Answer Date Recorded Have you ever been in or are you currently in a harmful physical or emotional relationship or is someone making you feel afraid or unsafe? Patient unable to answer 06/14/2024 Sex and Gender Information Value Date Recorded Sex Assigned at Not on file Legal Sex Male 1:37 AM CDT Gender Identity Male 06/15/2024 9:47 AM CDT Sexual Orientation Not on file Last Filed Vital Signs Vital Sign Reading Time Taken Comments Blood Pressure 132/56 01/13/2025 9:40 AM WIRE FRAME DIPPER Pulse 70 01/13/2025 9:40 AM WIRE FRAME DIPPER Temperature 36.5 C (97.7 F) 06/23/2024 8:25 AM CDT Respiratory Rate 19 06/23/2024 8:25 AM CDT Oxygen Saturation 98% 01/13/2025 9:40 AM WIRE FRAME DIPPER Inhaled Oxygen Concentration - - Weight 95.3 kg (210 lb) 01/13/2025 9:40 AM WIRE FRAME DIPPER Height 175.3 cm (5' 9 ) 01/13/2025 9:40 AM WIRE FRAME DIPPER Body Mass Index 31.01 01/13/2025 9:40 AM WIRE FRAME DIPPER Plan of Treatment Not on file Medical Devices Implanted Type Area Strategy Specialist Device Identifier Shelf Expiration Date Model / Serial / Lot Medtronic Card Vasc Surgery 3.0 X 18mm [employer] [place] Rx Coronary Stent [id number] - [id number] Implanted:Qty: 1 on 06/13/2024 by Ricci Mclain MD at [facility] Vasc Surgery 04/02/2027 [id number] / / [id number] Mynx Control 6-7fr 2 Mode Balloon Catheter Sealant Lock Syringe [id number] - [id number] Implanted:Qty: 1 on 06/13/2024 by Ricci Mclain MD at [facility] [employer] 09/24/2024 [id number] / / [id number] [employer] System Closure Repair Femoral Artery Suture Mediated Perclose Prostyle 12492-45 - [id number] Implanted:Qty: 1 on 06/13/2024 by Ricci Mclain MD at [facility] [employer] 03/24/2026 [id number] / / [id number] [employer] System Closure Repair Femoral Artery Suture Mediated Perclose Prostyle 58512-37 - [id number] Implanted:Qty: 1 on 06/13/2024 by Ricci Mclain MD at [facility] [employer] 03/24/2026 [id number] / / [id number] [employer] Impella Cp Percutaneous Left Ventricular Assist Device [id number] - [id number] - [id number] Implanted:Qty: 1 on 06/13/2024 by Ricci Mclain MD at [facility] [employer] 03/24/2026 [id number] / [id number] / [id number] Procedures Procedure Name Priority Date/Time Associated Diagnosis Comments LIPID PANEL Routine 01/13/2025 10:31 AM WIRE FRAME DIPPER TRANSTHORACIC ECHO (TTE) COMPLETE W DOPPLER/CF W CONTRAST Routine 11/03/2024 12:19 PM WIRE FRAME DIPPER History of ST elevation myocardial infarction (STEMI) from Last 3 Months Results * Lipid panel (01/13/2025 10:31 AM WIRE FRAME DIPPER) SCRIBED Cholesterol, Total ,100 <100 EXTERNAL LAB SCRIBED HDL 37 >40 EXTERNAL LAB SCRIBED LDL 40.2 <100 EXTERNAL LAB SCRIBED Triglycerides 109 <150 EXTERNAL LAB Blood 01/13/2025 10:3 1 AM WIRE FRAME DIPPER us Ricci Mclain MD LAB BLOOD ORDERABLES Final Resul t EXTERNAL LAB * TRANSTHORACIC ECHO (TTE) COMPLETE W DOPPLER/CF W CONTRAST (11/03/2024 12:19 PM WIRE FRAME DIPPER) Anatomical Region Laterality Modality Ultrasound 11/03/2024 11:5 4 AM WIRE FRAME DIPPER Narrative 11/03/2024 3:06 PM WIRE FRAME DIPPER [facility] Medical Group Cardiology [address] [facility] [address], [place] [address] [address] [facility] [address], [place] [address] P:[phone] P:[phone] Echocardiographic Report Patient Name: ALLEN CHINCHILLA P : 1960 Study Date: 11/03/2024 11:54:18 AM Gender: M Tech: Location: CT Ref Provider: JOSE MENESES Height(Cm): 175 BSA: 2.1 Weight(Kg): 90.3 Heart Rate: 50 BP: 128 / 72 Quality: Good Order Provider: JOSE MENESES PROCEDURES: Echocardiographic Report: Transthoracic echocardiogram with complete 2D, M-Mode, color Doppler examination and Definity contrast. INDICATIONS: I25.2 Old myocardial infarction. MEASUREMENTS: 2D/MM Value Range Doppler Value Range Estimated EF 59 % CLIFTON Vmax 2.21 cm2 [ 2.00 - 4.00 ] LVIDd 2D 4.32 cm [ 4.20 - 5.80 ] AV Mean PG 4 mmHg LVIDs 2D 3.21 cm [ 2.50 - 4.00 ] AV Peak Gigi 1.38 m/s [ 1.00 - 1.70 ] LVPWd 2D 0.96 cm [ 0.60 - 1.00 ] AV Peak PG 8 mmHg IVSd 2D 0.96 cm [ 0.60 - 1.00 ] AV VTI 35.42 cm LA Volume Index 34 cc/m2 [ 16 - 34 ] LVOT Diam 2.04 cm [ 1.70 - 2.10 ] LVOT Peak Gigi 0.94 m/s [ 0.70 - 1.10 ] LVOT VTI 22.68 cm MV E Peak Gigi 0.71 m/s [ 0.60 - 1.30 ] MV A Peak Gigi 0.79 m/s [ 1.00 - 1.20 ] MV Decel Time 268 msec [ 104 - 258 ] Lateral E` 0.10 m/s [ 0.10 - 0.15 ] E` 0.08 m/s E/E` 7 2D/MM Value Range Doppler Value Range - FINDINGS: Interpretation Site: Exam was interpreted at home. Left Ventricle: Definity contrast agent used to visually enhance endocardial wall motion and contractility. Lot Number: [id number]. Global Longitudinal Strain is -16 %. The left ventricle is normal in size and systolic function. The left ventricular ejection fraction is visually estimated to be 60-65%. Resting Segmental Wall Motion Analysis: Total wall motion score is 1.00. There are no regional wall motion abnormalities. Right Ventricle: The right ventricle is normal in size and systolic function. Left Atrium: The left atrium is normal in size. Right Atrium: The right atrium is normal in size. Atrial Septum: Normal atrial septum. Mitral Valve: The mitral valve leaflets are thickened. There is no mitral regurgitation. Aortic Valve: The aortic valve is trileaflet and opens well. There is no aortic regurgitation. Tricuspid Valve: The tricuspid valve is normal. Pulmonic Valve: The pulmonic valve is normal. There is no pulmonic valve regurgitation. Pericardium: Normal pericardium with no significant pericardial effusion. Aorta: The aortic root measured at the level of the sinus of Valsalva is 3.4 cm in diameter. IVC: Normal size and normal respiratory collapse consistent with normal right atrial pressure (<5 mmHg). CONCLUSIONS: Normal biventricular systolic function. No significant valvular disease. Electronically Signed By: Dr. Karthikeyan Flores 11/03/2024 3:05:22 PM WIRE FRAME DIPPER Procedure Note Karthikeyan Flores MD - 11/03/2024 [facility] Medical Group Cardiology [address] [facility] [address], [place] [address] [address] [facility] [address], [place] [address] P:[phone] P:[phone] Echocardiographic Report Patient Name: ALLEN CHINCHILLA P : 1960 Study Date: 11/03/2024 11:54:18 AM Gender: M Tech: Location: [facility] Provider: JOSE MENESES Height(Cm): 175 BSA: 2.1 Weight(Kg): 90.3 Heart Rate: 50 BP: 128 / 72 Quality: Good Order Provider: JOSE MENESES PROCEDURES: Echocardiographic Report: Transthoracic echocardiogram with complete 2D, M-Mode, color Dopplerexamination and Definity contrast. INDICATIONS: I25.2 Old myocardial infarction. MEASUREMENTS: 2D/MM Value Range Doppler ValueRange Estimated EF 59 % CL[place] Vmax 2.21cm2 [ 2.00 - 4.00 ] LVIDd 2D 4.32 cm [ 4.20 - 5.80 ] AV Mean PG 4mmHg LVIDs 2D 3.21 cm [ 2.50 - 4.00 ] AV Peak Gigi 1.38m/s [ 1.00 - 1.70 ] LVPWd 2D 0.96 cm [ 0.60 - 1.00 ] AV Peak PG 8mmHg IVSd 2D 0.96 cm [ 0.60 - 1.00 ] AV VTI 35.42cm LA Volume Index 34 cc/m2 [ 16 - 34 ] LVOT Diam 2.04 cm[ 1.70 - 2.10 ] LVOT Peak Gigi 0.94 m/s [ 0.70 - 1.10 ] LVOT VTI 22.68 cm MV E Peak Gigi 0.71 m/s [ 0.60 - 1.30 ] MV A Peak Gigi 0.79 m/s [ 1.00 - 1.20 ] MV Decel Time 268 msec [ 104 - 258 ] Lateral E` 0.10 m/s [ 0.10 - 0.15 ] E` 0.08 m/s E/E` 7 2D/MM Value Range Doppler ValueRange - FINDINGS: Interpretation Site: Exam was interpreted at home. Left Ventricle: Definity contrast agent used to visually enhance endocardial wall motionand contractility. Lot Number: [id number]. Global Longitudinal Strain is -16 %. Theleft ventricle is normal in size and systolic function. The left ventricular ejectionfraction is visually estimated to be 60-65%. Resting Segmental Wall Motion Analysis: Total wall motion score is 1.00. There are no regional wall motionabnormalities. Right Ventricle: The right ventricle is normal in size and systolic function. Left Atrium: The left atrium is normal in size. Right Atrium: The right atrium is normal in size. Atrial Septum: Normal atrial septum. Mitral Valve: The mitral valve leaflets are thickened. There is no mitralregurgitation. Aortic Valve: The aortic valve is trileaflet and opens well. There is no aorticregurgitation. Tricuspid Valve: The tricuspid valve is normal. Pulmonic Valve: The pulmonic valve is normal. There is no pulmonic valve regurgitation. Pericardium: Normal pericardium with no significant pericardial effusion. Aorta: The aortic root measured at the level of the sinus of Valsalva is 3.4 cmin diameter. IVC: Normal size and normal respiratory collapse consistent with normal rightatrial pressure (<5 mmHg). CONCLUSIONS: Normal biventricular systolic function. No significant valvular disease. Electronically Signed By: Dr. Karthikeyan Flores 11/03/2024 3:05:22 PM WIRE FRAME DIPPER Jose Meneses NP CV ECHO PROCEDURES Final Result from Last [address] [facility] Advance Directives For more information, please contact: [phone] * Full Code (Latest Code Status on File) Date Activated Date Inactivated Comments 06/13/2024 5:25 AM 06/23/2024 3:26 PM * Full Code Date Activated Date Inactivated Comments 06/13/2024 2:54 AM 06/13/2024 5:25 AM Care Teams Shade Classifier Relationship Specialty Start Date End Date Allen Humphrey MD [address] [place] [address] PCP - General Emergency Medicine 05/25/24 Allen Humphrey MD [address] [place] [address] 05/25/24
--- OUTSIDE RECORDS SUMMARY | 2025-01-20 14:43 | XMS_ITS | CONTINUITY OF CARE DOCUMENT ---
Author Name stewart william Address Unknown Organization [facility] Address [address] [facility] [address] [place] [address] Phone [phone] Care Team Providers Care Manager Imaging Name Role Phone Hardeep Warren MD Unavailable EVELYN SANTIAGO MD Unavailable [phone] INSURANCE PROVIDERS Payer name Policy type / Coverage type [place] [employer] party ID [facility] Other [id number]
--- OUTSIDE RECORDS SUMMARY | 2025-01-20 14:43 | XMS_ITS | Clinical Summary ---
Author Organization [facility] Virtual Care Address [facility] [place] [address] Phone Care Team Providers Care Monument Mason Name Role Phone Олег Humphrey MD Primary Care Provide r Олег Humphrey MD Unavailable [phone] Allergies Active Allergy Reactions Criticality Noted Date Comments Guaifenesin Angioedema High 08/31/2024 Medications ticagrelor (BRILINTA) 90 mg tabletIndicati ons:Coronary artery disease involving inupiat coronary artery of inupiat heart without angina pectoris Take 1 tablet (90 mg total) by mouth 2 (two) times a day 180 tablet 3 07/06/20 Active atorvastatin (LIPITOR) 80 mg tabletIndicati ons:Coronary artery disease involving inupiat coronary artery of inupiat heart without angina pectoris Take 1 tablet (80 mg total) by mouth nightly 90 tablet 3 07/06/20 24 2024 Active carvediloL (COREG) 6.25 mg tabletIndicati ons:Coronary artery disease involving inupiat coronary artery of inupiat heart without angina pectoris TAKE 1 TABLET BY MOUTH TWICE DAILY WITH MEALS 180 tablet 2 12/30/19 25 Active aspirin 81 mg enteric coated tablet Take 1 tablet (81 mg total) by mouth daily 30 tablet 11 01/13/20 25 2025 Active losartan (COZAAR) 25 [...] 6.25 mg tabletIndicati ons:Coronary artery disease involving inupiat coronary artery of inupiat heart without angina pectoris Take 1 tablet (6.25 mg total) by mouth 2 (two) times a day with meals 180 tablet 11/19/20 24 2024 Discontinued Active Problems Problem Noted Date Diagnosed Date Anoxic brain damage 06/16/2024 Ventricular fibrillation (CMS/HCC) 06/13/2024 Encounters Date Type Department Care Team Description 01/13/2025 10:00 AM ANIMAL SCIENCE PROFESSOR Office Visit [facility] Cardiology [address] [place] [address] Ricci Mclain MD Coronary artery disease involving inupiat coronary artery of inupiat heart without angina pectoris (Primary Dx); History of ST elevation myocardial infarction (STEMI); Status post angioplasty with stent; History of sudden cardiac arrest successfully resuscitated; Shortness of breath; History of tobacco abuse 11/03/2024 11:15 AM ANIMAL SCIENCE PROFESSOR Ancillary Procedure [facility] Cardiology [address] [place] [address] [address] [place] [phone] elevation myocardial infarction (STEMI) 10/28/2024 Telephone [facility] Cardiology [address] [place] [address] [address] [place] [phone] Elisa Meneses NP return to work letter 10/26/2024 8:30 AM ANIMAL SCIENCE PROFESSOR Office Visit [facility] Cardiology [address] [place] [address] [place] [phone] Elisa Meneses NP History of ST elevation myocardial infarction (STEMI) (Primary Dx); 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 Hypertension Brother 2 Nadir Jr Heart attack Father Nadir Sr. Cancer Sister Marisela Relation Name Status Comments Brother 1 Nadir Jr. Brother 2 Nadir Jr Father Nadir Sr. Sister Marisela Social History Tobacco Use Types Packs/Day Years Used Date Smoking Tobacco: Former Cigarettes 1.5 15 Q uit: 06/13/2024 Smokeless Tobacco: Never [facility] Utilities Answer Date Recorded In the past 12 months has [employer], gas, oil, or water [employer] threatened to shut off services in your [...] often do you attend chur ch or zoroastrian services? Never 06/15/2024 Do you belong to any clubs o r organizations such as synagogue groups, unions, fraternal or athletic groups, or [...] any time in the past 12 m [facility], were you homeless or living in a custodial (including now)? No 06/15/2024 Personal Safety Answer [...] AM CDT Sexual Orientation Not on file Obstetrics History Last Filed Vital Signs Vital Sign Reading Time Taken Comments Blood Pressure 132/56 01/13/2025 9:40 AM ANIMAL SCIENCE PROFESSOR Pulse 70 01/13/2025 9:40 AM ANIMAL SCIENCE PROFESSOR Temperature 36.5 C (97.7 F) 06/23/2024 8:25 AM CDT Respiratory Rate 19 06/23/2024 8:25 AM CDT Oxygen Saturation 98% 01/13/2025 9:40 AM ANIMAL SCIENCE PROFESSOR Inhaled Oxygen Concentration - - Weight 95.3 kg (210 lb) 01/13/2025 9:40 AM ANIMAL SCIENCE PROFESSOR Height 175.3 cm (5' 9 ) 01/13/2025 9:40 AM ANIMAL SCIENCE PROFESSOR Body Mass Index 31.01 01/13/2025 9:40 AM ANIMAL SCIENCE PROFESSOR Plan of Treatment Health Maintenance Due Date Last Done Comments Colon Cancer Screening-Colonoscopy 1960 Depression Screening 1960 Hepatitis C Screening 1960 Prostate Cancer Screening-PSA 1960 DTaP/Tdap/Td Vaccine (1 - Tdap) 1969 Hepatitis B Screening 02/07/1976 Pneumococcal vaccine 65+ (1 of 2 - PCV) 1977 Lung Cancer Screening 02/07/2008 Zoster Vaccine (1 of 2) 02/07/2008 Abdominal Aortic Aneurysm (A AA) Screen 2023 Well Visit 65+ 2023 Influenza Vaccine (#1) 2024 , 09/18/2022, 09/11/2021, Additional history exists Fall Risk Assessment 06/23/2025 06/23/2024 Medical Devices Implanted Type Area Marble Cleaner Device Identifier Shelf Expiration Date Model / Serial / Lot Medtronic Card Vasc Surgery 3.0 X 18mm [place] [employer] Coronary Stent [id number] - [id number] Implanted:Qty: 1 on 06/13/2024 by Ricci Mclain MD at [facility] Medtronic Card Vasc Surgery 04/02/2027 [id number] / / [id number] Mynx Control 6-7fr 2 Mode Balloon Catheter Sealant Lock Syringe [id number] - [id number] Implanted:Qty: 1 on 06/13/2024 by Ricci Mclain MD at [facility] [employer] 09/24/2024 [id number] / / [id number] [employer] System Closure Repair Femoral Artery Suture Mediated Perclose Prostyle 30776-33 - [id number] Implanted:Qty: 1 on 06/13/2024 by Ricci Mclain MD at [facility] [employer] 03/24/2026 [id number] / / [id number] [employer] System Closure Repair Femoral Artery Suture Mediated Perclose Prostyle 30375-43 - [id number] Implanted:Qty: 1 on 06/13/2024 by Ricci Mclain MD at [facility] [employer] 03/24/2026 [id number] / / [id number] [employer] Impella Cp Percutaneous Left Ventricular Assist Device [id number] - [id number] - [id number] Implanted:Qty: 1 on 06/13/2024 by Ricci Mclain MD at [facility] [employer] 03/24/2026 [id number] / [id number] / [id number] Procedures Procedure Name Priority Date/Time Associated Diagnosis Comments LIPID PANEL Routine 01/13/2025 10:31 AM ANIMAL SCIENCE PROFESSOR TRANSTHORACIC ECHO (TTE) COMPLETE W DOPPLER/CF W CONTRAST Routine 11/03/2024 12:19 PM ANIMAL SCIENCE PROFESSOR History of ST elevation myocardial infarction (STEMI) from Last 3 Months Results * Lipid panel (01/13/2025 10:31 AM ANIMAL SCIENCE PROFESSOR) SCRIBED Cholesterol, Total ,100 <100 EXTERNAL LAB SCRIBED HDL 37 >40 EXTERNAL LAB SCRIBED LDL 40.2 <100 EXTERNAL LAB SCRIBED Triglycerides 109 <150 EXTERNAL LAB Blood 01/13/2025 10:3 1 AM ANIMAL SCIENCE PROFESSOR us Ricci Mclain MD LAB BLOOD ORDERABLES Final Resul t EXTERNAL LAB * TRANSTHORACIC ECHO (TTE) COMPLETE W DOPPLER/CF W CONTRAST (11/03/2024 12:19 PM ANIMAL SCIENCE PROFESSOR) Anatomical Region Laterality Modality Ultrasound 11/03/2024 11:5 4 AM ANIMAL SCIENCE PROFESSOR Narrative 11/03/2024 3:06 PM ANIMAL SCIENCE PROFESSOR [facility] Cardiology [address], [place] [address] [address] [facility] [address], [place] [address] P:[phone] P:[phone] Echocardiographic Report Patient Name: ОЛЕГ CHINCHILLA P : 1960 Study Date: 11/03/2024 11:54:18 AM Gender: M Tech: Location: [place] Ref Provider: ELISA MENESES Height(Cm): 175 BSA: 2.1 Weight(Kg): 90.3 Heart Rate: 50 BP: 128 / 72 Quality: Good Order Provider: ELISA MENESES PROCEDURES: Echocardiographic Report: Transthoracic echocardiogram with [...] By: Dr. Karthikeyan Flores 11/03/2024 3:05:22 PM ANIMAL SCIENCE PROFESSOR Procedure Note Karthikeyan Flores MD - 11/03/2024 [facility] Cardiology [address] [facility] [address], [place] [address] [address] [facility] [address], [place] [address] P:[phone] P:[phone] Echocardiographic Report Patient Name: ОЛЕГ CHINCHILLA P : 1960 Study Date: 11/03/2024 11:54:18 AM Gender: M Tech: RAYMON Location: [facility] Provider: ELISA MENESES Height(Cm): 175 BSA: 2.1 Weight(Kg): 90.3 Heart Rate: 50 BP: 128 / 72 Quality: Good Order Provider: ELISA MENESES PROCEDURES: Echocardiographic Report: Transthoracic echocardiogram with [...] By: Dr. Karthikeyan Flores 11/03/2024 3:05:22 PM ANIMAL SCIENCE PROFESSOR Elisa Meneses NP CV ECHO PROCEDURES Final Result from Last 3 Months Insurance [facility] [employer] [place] [employer] [place] [employer] [place] Advance Directives For more information, please contact: [phone] * Full Code (Latest Code Status on File) Date Activated Date Inactivated Comments 06/13/2024 5:25 AM 06/23/2024 3:26 PM * Full Code Date Activated Date Inactivated Comments 06/13/2024 2:54 AM 06/13/2024 5:25 AM Care Teams Monument Mason Relationship Specialty Start Date End Date Олег Humphrey MD [address] [place] [address] PCP - General Emergency Medicine 05/25/24 Олег Humphrey MD [address] [place] [address] 05/25/24
--- OUTSIDE RECORDS SUMMARY | 2025-01-20 14:43 | XMS_ITS | Clinical Summary ---
Author Organization [facility] Address [address] [place] [address] Care Team Providers Care Hand Developer Name Role Phone Unavailable Primary Care Provider Unavailabl e Social History Tobacco Use Types Packs/Day Years Used Date Smoking Tobacco: Never Assessed Sex and Gender Information Value Date Recorded Sex Assigned at Not on file Legal Sex Male 5:52 PM CDT Gender Identity Not on file Sexual Orientation Not on file Plan of Treatment Health Maintenance Due Date Last Done Comments Colorectal Cancer Screening Colonoscopy (10 Years) 1960 Hepatitis C 02/07/1976 DTaP, Tdap and Td Vaccines ( 1 - Tdap) 1977 Zoster Vaccines (1 of 2) 02/07/2008 Pneumococcal Vaccine: 65+ Ye ars (1 of 1 - PCV) 2023 COVID-19 Vaccine ( - 2023-2 5 season) 2024 Influenza Adult (#1) 2024 RSV Immunization or 60+ Years (1 - 1-dose 75+ series) 2033 Meningococcal B Vaccine Aged Out No l onger eligible based on patient's age to complete this topic Meningococcal Vaccine Aged Out No lady mimi eligible based on patient's age to complete this topic RSV Immunizations Under 20 Months Aged Out No longer eligible based on patient's age to complete this topic
--- NOTE | 2025-01-21 10:52 | WPDPFTINT ---
PFT Procedure Performed PFT Procedure Performed Spirometry with Pre/Post Bronchodilator Plethysmography (Lung Vol) Diffusing Cap (DLCO) Flow Vol Loop PFT Interpretation Lung volumes were measured with the body plethysmography method. The elevated RV could be due to air trapping. The remaining lung volumes are unremarkable. Spirometry showed diminished expiratory flow rates and a diminished FEV1 to FVC ratio 55%, consistent with obstructive airway disease. Following administration of a bronchodilator there was no significant increase in expiratory flow rates. Lung diffusion capacity is moderately reduced at 44% predicted. This diminished lung diffusion capacity coupled with a normal alveolar volume may indicate emphysema with preserved lung volume, anemia or pulmonary vascular abnormality. The flow-volume loop is consistent with obstructive airway disease. Impression: Moderate obstructive airway disease with possible air trapping and no response to bronchodilators on this testing. Moderately reduced lung diffusion capacity.
--- NOTE | 2025-01-21 10:57 | WPDSIXMINUTE ---
Six Minute Walk Procedure Procedure Performed Pulmonary Stress Test (6 min walk) Six Minute Walk Six Minute Walk: This 6 minute walk test was carried out with the patient breathing ambient air. The baseline pre walk oxyhemoglobin saturation was 98%. The patient walked 335 m with no stops during testing. During the walk the oxyhemoglobin saturation remained in the range of 93% to 96%. Impression: No evidence of oxyhemoglobin desaturation on this testing.
== END 2025-01-20 13:08 | disposition home or self-care (01) ==
PROVIDERS: PCP Emergency Medicine; Referring Provider Internal Medicine Cardiovascular Disease; Visit Provider Physician Assistant
DX: R91.8 Other nonspecific abnormal finding of lung field (principal); R94.2 Abnormal results of pulmonary function studies; J44.9 Chronic obstructive pulmonary disease, unspecified; I25.10 Atherosclerotic heart disease of native coronary artery without angina pectoris; Z87.891 Personal history of nicotine dependence
CPT/HCPCS: 71250; 94060; 94618; 94726; 94729

== ENCOUNTER 2025-05-21 11:42 | Outpatient (CLI) | payer MEDICARE, OTHER, SELFPAY ==
[2025-05-21 12:26] LABS: Basophils Absolute Auto 0.1 K/mm3 (0.0-0.1); Basophils Percent Auto 0.7 % (0.2-1.2); Eosinophils Absolute Auto 0.1 K/mm3 (0-0.3); Eosinophils Percent Auto 1.7 % (0-4.4); Hematocrit 44.1 % (42.0-52.0); Hemoglobin 14.4 g/dL (14.0-18.0); Immature Granulocyte Absolute 0.01 K/mm3 (0.00-0.031); Immature Granulocyte Percent A 0.1 % (0-0.5); Lymphocytes Absolute Auto 1.61 K/mm3 (0.9-3.2); Lymphocytes Percent Auto 22.9 % (18.3-44.2); Mean Corpuscular HGB Conc 32.7 g/dl (32-36); Mean Corpuscular Hemoglobin 30.9 pg (26-34); Mean Corpuscular Volume 94.6 fl (80-100); Mean Platelet Volume 10.6 fl (7.4-10.4); Monocytes Absolute Auto 0.8 K/mm3 (0.1-0.6); Monocytes Percent Auto 11.9 % (2.6-8.5); Neutrophils Absolute Auto 4.4 K/mm3 (1.3-6.7); Neutrophils Percent Auto 62.7 % (45.5-73.1); Platelet Count Result 207 k/mm3 (150-375); Red Blood Count 4.66 M/mm3 (4.6-6.20); Red Cell Distribution Width 12.1 % (11.5-14.5)
[2025-05-21 12:42] LABS: Hemoglobin A1C 5.5 % (<5.7)
[2025-05-21 13:04] LABS: NT Pro B Type Natriuretic Pept 49 pg/mL (19.9-100)
[2025-05-21 13:14] LABS: Vitamin D 25 Hydroxy 40.1 ng/mL
[2025-05-21 13:16] LABS: Alanine Aminotransferase 39 U/L (6-50); Albumin Level 4.2 g/dL (3.5-5.1); Alkaline Phosphatase 69 U/L (38-126); Anion Gap 8 mmol/L (4-12); Aspartate Amino Transferase 38 U/L (17-59); Bilirubin,Total 0.4 mg/dL (0.2-1.3); Blood Urea Nitrogen 17 mg/dL (9-20); Calcium 9.2 mg/dL (8.4-10.2); Carbon Dioxide 27 mmol/L (22-30); Chloride 105 mmol/L (98-107); Cholesterol 117 mg/dL (0-200); Estimated Glomerular Filt Rate > 60; Glucose 95 mg/dL (65-110); HDL Direct 39 mg/dL; Potassium 4.5 mmol/L (3.4-5.0); Sodium 140 mmol/L (137-145); Total Protein 7.1 g/dL (6.3-8.2); Triglycerides 108 mg/dL (<150)
[2025-05-21 13:29] LABS: LDL Cholesterol Direct 47 mg/dL
== END 2025-05-21 11:43 | disposition home or self-care (01) ==
PROVIDERS: PCP Emergency Medicine; Referring Provider Internal Medicine Cardiovascular Disease; Visit Provider Emergency Medicine
DX: Z12.5 Encounter for screening for malignant neoplasm of prostate (principal); E78.5 Hyperlipidemia, unspecified; E55.9 Vitamin D deficiency, unspecified; E11.9 Type 2 diabetes mellitus without complications; I25.10 Atherosclerotic heart disease of native coronary artery without angina pectoris; R06.02 Shortness of breath
CPT/HCPCS: 36415; 80053; 80061; 82306; 83036; 83880; 84153; 85025; G0103

== ENCOUNTER 2025-07-05 07:48 | Outpatient (CLI) | payer MEDICARE, SELFPAY ==
--- OUTSIDE RECORDS SUMMARY | 2025-07-05 07:56 | XMS_ITS | Encounter Summary ---
Author Organization [facility] Healthcare Address [address] [place] [address] Care Team Providers Care Time Analysis Clerk Name Role Phone Allen Humphrey MD Primary Care Provide r Allen Humphrey MD Unavailable [phone] Encounter Details Date Type Department Care Team (Late st Contact Info) Description 01/20/2025 Orders Only [facility] Information Management [address] [place] [address] Scanning, Provider Social History Tobacco Use Types Packs/Day Years Used Date Smoking Tobacco: Former Cigarettes 1.5 15 Q uit: 06/13/2024 Smokeless Tobacco: Never [facility] Utilities Answer Date Recorded In the past 12 months has [employer] gas, oil, or water [employer] threatened to shut off services in your home? No 06/15/2024 Social Connection and Isolation Panel Answer Date Recorded In a typical week, how many times do you talk on the phone with family, friends, or neighbors? More than three times a week 06/15/2024 How often do you get togethe r with friends or relatives? More than three times a week 06/15/2024 How often do you attend [facility] or episcopal services? Never 06/15/2024 Do you belong to any clubs o r organizations such as baptism groups, unions, fraternal or athletic groups, or [...] any time in the past 12 m [facility], were you homeless or living in a prison (including now)? No 06/15/2024 Personal Safety Answer [...] AM CDT Sexual Orientation Not on file documented as of this encounter Plan of Treatment Not on file documented as of this encounter Procedures Procedure Name Priority Date/Time Associated Diagnosis Comments PULMONARY - RESULT SCAN 01/20/2025 documented in this encounter Results * PULMONARY - RESULT SCAN (01/20/2025) Anatomical Region Laterality Modality Other us Provider Scanning Final Result documented in this encounter Visit Diagnoses Not on filedocumented in this encounter Care Teams Time Analysis Clerk Relationship Specialty Start Date End Date Allen Humphrey MD [address] [place] [address] PCP - General Emergency Medicine 05/25/24 Allen Humphrey MD [address] [place] [address] 05/25/24 documented as of this encounter
--- OUTSIDE RECORDS SUMMARY | 2025-07-05 07:56 | XMS_ITS | Clinical Summary ---
Author Organization [facility] Address [address] [place] [address] Care Team Providers Care Tank Car Cleaner Name Role Phone Unavailable Primary Care Provider [...] Td Vaccines ( 1 - Tdap) 1977 Pneumococcal Vaccine: 50+ Ye ars (1 of 1 - PCV) 02/07/2008 Zoster Vaccines (1 of 2) 02/07/2008 COVID-19 Vaccine ( - 2023-2 5 season) 2024 RSV Immunization or 60+ Years (1 [...]
--- OUTSIDE RECORDS SUMMARY | 2025-07-05 07:56 | XMS_ITS | Encounter Summary ---
Author Organization [facility] Healthcare Address [address] [place] [address] Care Team Providers Care Sample Carrier Name Role Phone Allen Humphrey MD Primary Care Provide r Allen Humphrey MD Unavailable [phone] Encounter Details Date Type Department Care Team (Latest Contact Info) Description 06/08/2025 Results Follow-Up [facility] Medical Group Cardiology [address] [place] [phone] Ricci Mclain MD [address] [place] [address], [address] [address] Pro B-type natriuretic peptide, CBC with auto differential, Comprehensive metabolic panel Social History Tobacco Use Types Packs/Day Years Used Date Smoking Tobacco: Former Cigarettes 1.5 15 Q uit: 06/13/2024 Smokeless Tobacco: Never [facility] Utilities Answer Date Recorded In the past 12 months has [employer], gas, oil, or water company threatened to shut off services in your [...] often do you attend chur ch or protestant services? Never 06/15/2024 Do you belong to any clubs o r organizations such as alevism groups, unions, fraternal or athletic groups, or [...] any time in the past 12 m [facility], were you homeless or living in a residential (including now)? No 06/15/2024 Personal Safety Answer [...] on file documented as of this encounter Visit Diagnoses Not on filedocumented in this encounter Care Teams Sample Carrier Relationship Specialty Start Date End Date Allen Humphrey MD [address] [place] [address] PCP - General Emergency Medicine 05/25/24 Allen Humphrey MD [address] [place] [address] 05/25/24 documented as of this encounter
--- OUTSIDE RECORDS SUMMARY | 2025-07-05 07:56 | XMS_ITS | Clinical Summary ---
Author Organization [facility] Virtual Care Address [address] [place] [phone] Phone Care Team Providers Care Sports Marketing Specialist Name Role Phone Allen Humphrey MD Primary Care Provide r Allen Humphrey MD Unavailable Allergies Active Allergy Reactions Criticality Noted Date Comments Guaifenesin Angioedema High 08/31/2024 Medications atorvastatin (LIPITOR) 80 mg tabletIndicatio ns:Coronary artery disease involving pechanga coronary artery of pechanga heart without angina pectoris Take 1 tablet (80 mg total) by mouth nightly 90 tablet 3 4 07/06/20 25 Active aspirin 81 mg enteric coated tablet Take 1 tablet (81 mg total) by mouth daily 30 tablet 5 01/13/20 26 Active losartan (COZAAR) 25 mg tablet Take 1 tablet (25 mg total) by mouth daily 30 tablet 5 01/13/20 26 Active spironolactone (ALDACTONE) 25 mg tablet Take 1 tablet (25 mg total) by mouth daily 30 tablet 5 01/13/20 26 Active [id number] -Lmfolate-algal 27 mg iron-1.13 mg-581.92 mg capsule Take by mouth Active clopidogreL (PLAVIX) 75 mg tablet Take 1 tablet (75 mg total) by mouth daily Stop taking at the end of June 5 07/25/20 26 Active carvediloL (COREG) 6.25 mg tabletIndicatio ns:Coronary artery disease involving pechanga coronary artery of pechanga heart without angina pectoris Take 1 tablet (6.25 mg total) by mouth 2 (two) times a day with meals 180 tablet 3 5 Active carvediloL (COREG) 6.25 mg tabletIndicatio ns:Coronary artery disease involving pechanga coronary artery of pechanga heart without angina pectoris TAKE 1 TABLET BY MOUTH TWICE DAILY WITH MEALS 180 tablet 2 5 06/07/20 25 Discontinu ed(Reorder ) Active Problems Problem Noted Date Diagnosed Date Chronic obstructive pulmonary disease 05/18/2025 Coronary artery disease invo lving pechanga coronary artery of pechanga heart without angina pectoris 05/18/2025 Anoxic brain damage 06/16/2024 Ventricular fibrillation 06/13/2024 Encounters Date Type Department Care Team Description 06/08/2025 Results Follow-Up [facility] Medical Group Cardiology [address] [place] [phone] Ricci Mclain MD Pro B-type natriuretic peptide, CBC with auto differential, Comprehensive metabolic panel 05/25/2025 Orders Only [facility] Medical Group Cardiology [address] [place] [phone] Ricci Mclain MD 05/18/2025 8:00 AM CDT Office Visit [facility] Medical [facility] Cardiology [address] [place] [address] [address] [place] [phone] Elisa Meneses NP Coronary artery disease involving pechanga coronary artery of pechanga heart without angina pectoris (Primary Dx); Chronic obstructive pulmonary disease, unspecified COPD type (HCC); Class 1 obesity due to excess calories with serious comorbidity and body mass index (BMI) of 31.0 to 31.9 in adult from Last 3 Months Medical History Medical History Date Comments Heart disease 06/13/2024 Family History Medical History Relation Name Comments Diabetes Brother 1 Nadir Alfredo. Hypertension Brother 2 Nadir Alfredo Heart attack Father Nadir Garcia Cancer Sister Marisela Relation Name Status Comments Brother 1 Nadir Alfredo. Brother 2 Nadir Alfredo Father Nadir Bennett. Sister Marisela Social History Tobacco Use Types Packs/Day Years Used Date Smoking Tobacco: Former Cigarettes 1.5 15 Q uit: 06/13/2024 Smokeless Tobacco: Never [facility] Utilities Answer Date Recorded In the past 12 months has th e electric, gas, oil, or water company threatened [...] often do you attend chur ch or anabaptist services? Never 06/15/2024 Do you belong to any clubs o r organizations such as taoism groups, unions, fraternal or athletic groups, or [...] any time in the past 12 m [facility], were you homeless or living in a fdc (including now)? No 06/15/2024 Personal Safety Answer [...] Sign Reading Time Taken Comments Blood Pressure 116/78 05/18/2025 8:32 AM CDT Pulse 63 05/18/2025 8:32 AM CDT Temperature 36.5 C (97.7 F) 06/23/2024 8:25 AM CDT Respiratory Rate 19 06/23/2024 8:25 AM CDT Oxygen Saturation 97% 05/18/2025 8:32 AM CDT Inhaled Oxygen Concentration - - Weight 94.3 kg (207 lb 14.4 oz) 05/18/2025 8:32 AM CDT Height 175.3 cm (5' 9) 05/18/2025 8:32 AM CDT Body Mass Index 30.7 05/18/2025 8:32 AM CDT Plan of Treatment Health Maintenance Due Date Last Done Comments Colon Cancer Screening-Colonoscopy 1960 Depression Screening 1960 Hepatitis C Screening 1960 DTaP/Tdap/Td Vaccine (1 - Tdap) 1969 Hepatitis B Screening 02/07/1976 Pneumococcal vaccine 65+ (1 of 2 - PCV) 1977 Lung Cancer Screening 02/07/2008 Zoster Vaccine (1 of 2) 02/07/2008 Abdominal Aortic Aneurysm (A AA) Screen 2023 Well Visit 65+ 2023 Fall Risk Assessment 06/23/2025 06/23/2024 Influenza Vaccine (#1) 2025 3, 09/18/2022, 09/11/2021, Additional history exists Prostate Cancer Screening-PSA 05/21/2027 05/21/2025 Medical Devices Implanted Type Area Lacquer Polisher Device Identifier Shelf Expiration Date Model / Serial / Lot Medtronic Card Vasc Surgery 3.0 X 18mm [place] Rx Coronary Stent [id number] - [id number] Implanted:Qty: 1 on 06/13/2024 [facility] 04/02/2027 [id number] / / [id number] Mynx Control 6-7fr 2 Mode Balloon Catheter Sealant Lock Syringe [id number] - [id number] Implanted:Qty: 1 on 06/13/2024 by Ricci Mclain MD at [facility] [employer] 09/24/2024 [id number] / / [id number] [employer] System Closure Repair Femoral Artery Suture Mediated Perclose Prostyle 57792-84 - [id number] Implanted:Qty: 1 on 06/13/2024 by Ricci Mclain MD at [facility] [employer] 03/24/2026 [id number] / / [id number] [employer] V[employer] System Closure Repair Femoral Artery Suture Mediated Perclose Prostyle 69971-52 - [id number] Implanted:Qty: 1 on 06/13/2024 by Ricci Mclain MD at [facility] [employer] 03/24/2026 [id number] / / [id number] [employer] Impella Cp Percutaneous Left Ventricular Assist Device [id number] - [id number] - [id number] Implanted:Qty: 1 on 06/13/2024 by Ricci Mclain MD at [facility] [employer] 03/24/2026 [id number] / [id number] / [id number] Procedures Procedure Name Priority Date/Time Associated Diagnosis Comments HEMOGLOBIN A1C Routine 05/25/2025 PSA, TOTAL Routine 05/21/2025 5:34 PM CDT LIPID PANEL Routine 05/21/2025 5:33 PM CDT VITAMIN D 25 HYDROXY Routine 05/21/2025 5:33 PM CDT COMPREHENSIVE METABOLIC PANEL Routine 05/21/2025 Coronary artery disease involving pechanga coronary artery of pechanga heart without angina pectoris Shortness of breath CBC WITH AUTO DIFFERENTIAL Routine 05/21/2025 Coronary artery disease involving pechanga coronary artery of pechanga heart without angina pectoris Shortness of breath PRO B-TYPE NATRIURETIC PEPTIDE Routine 05/21/2025 Coronary artery disease involving pechanga coronary artery of pechanga heart without angina pectoris Shortness of breath from Last 3 Months Results * Hemoglobin A1c (05/25/2025) SCRIBED Hemoglobin A1c 5.5 4.0 - 5.6 % EXTERNAL LAB Blood Historical Provider MD LAB BLOOD ORDERABLES Edit ed Result - Final EXTERNAL LAB * PSA, total (05/21/2025 5:34 PM CDT) Blood [facility] Provider MD LAB BLOOD ORDERABLES Sarah l Result * Vitamin D 25 hydroxy (05/21/2025 5:33 PM CDT) SCRIBED 25-OH Vitamin D 40.1 30 - 100 ng/mL EXTERNAL LAB Blood Historical Provider MD LAB BLOOD ORDERABLES Edit ed Result - Final EXTERNAL LAB * (ABNORMAL) Lipid panel (05/21/2025 5:33 PM CDT) SCRIBED Cholesterol, Total 117 30 - 199 mg/dL EXTERNAL LAB SCRIBED Triglycerides 108 <=149 mg/dL EXTERNAL LAB SCRIBED HDL 39(A) >=40 mg/dL EXTERNAL LAB SCRIBED LDL 47 <=129 mg/dL EXTERNAL LAB Scribed Non-HDL Cholesterol EXTERNAL LAB Comment:Not performed by lab SCRIBED Total Cholesterol/HDL Ratio EXTERNAL LAB Comment:Not performed by lab Blood Misa Crook MD LAB BLOOD ORDERABLES Edit ed Result - Final EXTERNAL LAB * Pro B-type natriuretic peptide (05/21/2025) Pathologist [facility] [place] SCRIBED NT PROBNP 49 19.9 - 100 pg/mL EXTERNAL LAB Blood 05/21/2025 Ricci Mclain MD LAB BLOOD ORDERABLES Final Resul t Performing Organization Address City/[facility]/ZIP Co de Phone Number EXTERNAL LAB * CBC with auto differential (05/21/2025) SCRIBED WBC 7.0 3.8 - 9.9 K/cumm EXTERNAL LAB SCRIBED Hemoglobin 14.4 13.0 - 17.5 g/dL EXTERNAL LAB SCRIBED Hematocrit 44.1 35.6 - 45.5 % EXTERNAL LAB SCRIBED Platelets 207 150 - 400 K/cumm EXTERNAL LAB SCRIBED MPV 10.6 9.1 - 12.3 fL EXTERNAL LAB SCRIBED RBC 4.66 4.30 - 5.80 M/cumm EXTERNAL LAB SCRIBED MCV 94.6 81.3 - 96.4 fL EXTERNAL LAB SCRIBED MCH 30.9 27.1 - 33.3 pg EXTERNAL LAB SCRIBED MCHC 32.7 32.3 - 35.7 g/dL EXTERNAL LAB SCRIBED RDW 12.1 % EXTERNAL LAB SCRIBED NRBC 0.0 % EXTERNAL LAB SCRIBED NRBC Abs 0.00 0.00 - 0.01 K/cumm EXTERNAL LAB SCRIBED Neutrophils 62.7 NONE % EXTERNAL LAB SCRIBED Imm Granulocytes 0.1 NONE % EXTERNAL LAB SCRIBED Lymphocytes 22.9 NONE % EXTERNAL LAB SCRIBED Monocytes 11.9 NONE % EXTERNAL LAB SCRIBED Eosinophils 1.7 NONE % EXTERNAL LAB SCRIBED Basophils 0.7 NONE % EXTERNAL LAB SCRIBED Neutrophils Abs 4.40 1.50 - 6.50 K/cumm EXTERNAL LAB SCRIBED Imm Granulocytes Abs 0.0 0.0 - 0.1 K/cumm EXTERNAL LAB SCRIBED Lymphocytes Abs 1.6 0.8 - 3.3 K/cumm EXTERNAL LAB SCRIBED Monocytes Abs 0.8 0.2 - 0.8 K/cumm EXTERNAL LAB SCRIBED Eosinophils Abs 0.1 0.0 - 0.5 K/cumm EXTERNAL LAB SCRIBED Basophils Abs 0.1 0.0 - 0.1 K/cumm EXTERNAL LAB Blood 05/21/2025 us Ricci Mclain MD LAB BLOOD ORDERABLES Final Resul t EXTERNAL LAB * Comprehensive metabolic panel (05/21/2025) SCRIBED Sodium 140 137 - 145 mmol/L EXTERNAL LAB SCRIBED Potassium 4.5 3.4 - 5.0 mmol/L EXTERNAL LAB SCRIBED Chloride 105 98 - 107 mmol/L EXTERNAL LAB SCRIBED Carbon Dioxide 27 22 - 30 mmol/L EXTERNAL LAB SCRIBED Anion Gap 8 4 - 12 mmol/L EXTERNAL LAB SCRIBED Urea Nitrogen (BUN) 17 9 - 20 mg/dl EXTERNAL LAB SCRIBED Creatinine 1.06 0.7 - 1.3 mg/dl EXTERNAL LAB SCRIBED Glucose 95 65 - 110 mg/dl EXTERNAL LAB SCRIBED Calcium 9.2 8.4 - 10.2 mg/dl EXTERNAL LAB SCRIBED Bilirubin 0.4 0.2 - 1.3 mg/dl EXTERNAL LAB SCRIBED Plasma Protein 7.1 6.3 - 8.2 g/dl EXTERNAL LAB SCRIBED Albumin 4.2 3.5 - 5.1 g/dl EXTERNAL LAB SCRIBED Alkaline Phosphatase 69 38 - 126 Units/L EXTERNAL LAB SCRIBED Alanine Transaminase (ALT) 39 6 - 50 Units/L EXTERNAL LAB SCRIBED Aspartate Transaminase (AST) 38 17 - 59 Units/L EXTERNAL LAB SCRIBED eGFR in N/A N/A EXTERNAL LAB SCRIBED eGFR in NonAfrican Scottish >60 > or = 60 EXTERNAL LAB Blood 05/21/2025 us Ricci Mclain MD LAB BLOOD ORDERABLES Final Resul t EXTERNAL LAB from Last 3 Months Insurance [facility] MEDICARE SUPPLEMENT MEDICARE [employer] [place] [employer] [place] [employer] [place] Advance Directives For more information, please contact: [phone] * Full Code (Latest Code Status on File) Date Activated Date Inactivated Comments 06/13/2024 5:25 AM 06/23/2024 3:26 PM * Full Code Date Activated Date Inactivated Comments 06/13/2024 2:54 AM 06/13/2024 5:25 AM Care Teams Sports Marketing Specialist Relationship Specialty Start Date End Date Allen Humphrey MD [address] [place], [place] [id number] PCP - General Emergency Medicine 05/25/24 Allen Humphrey MD [address] [place] [address] 05/25/24
--- NOTE | 2025-07-27 11:43 | WPDSLEEPSTUD ---
Sleep Study Date of Study: 07/05/25 Ordering Provider: BLU Taveras Interpreting Physician: Hannah Boyle MD Sleep Study Type: Polysomnogram Height: 1.78 m Weight: 92.986 kg Body Mass Index: 29.4 Neck Circumference (inches): 17.5 [place]: 9 Reason for Sleep Study poor quality sleep Sleep History Allen Chinchilla is a 65-year-old man with poor quality sleep, snoring with naps, even when he sleeps in a recliner. His sleeps in another room. He occasionally awakens from sleep feeling short of breath. He frequently wakes at night with heartburn, belching or coughing.??He snores, and frequently snores loudly enough that his complains. He rarely has trouble sleeping when he has a cold. He occasionally wakes up gasping for breath during the night. He never sweats excessively at night. He never notices his heart pounding or beating irregularly during the night. He rarely falls asleep during the day. He occasionally falls asleep involuntarily, never falls asleep while driving. He never experiences loss of muscle tone with strong emotion. He never has daytime difficulty at work due to excessive sleepiness. He never feels paralyzed on waking or falling asleep. He rarely experiences vivid dreams upon waking or falling asleep. He never feels afraid of going to sleep. He rarely has nightmares. He occasionally recalls his dreams. He rarely has thoughts racing through his mind. He never feels sad or depressed. He never feels anxiety. He never notices parts of his body jerk. He rarely kicks during the night. He never feels crawling or aching feelings in his legs. He rarely feels leg pain at night. He never has morning jaw pain, rely grinds his teeth at night. He rarely feels bothered by pain during the day, occasionally is awakened by pain during the night. He occasionally wakes up feeling stiff in the morning, and he occasionally wakes feeling sore or achy. He occasionally awakens with pain in his neck, spine, or joints. he frequently has memory problems and frequently uses Tums for antacid. he reports gaining more than 30 lb in the last year. Normal bedtime is 11:30 p.m., falling asleep within 20 minutes, waking between 1 and 3 times at night. when he wakes at night to go to the bathroom, he is able to return to sleep within 5 minutes. These awakenings occur in the middle of the night and wood filler hours. He also wakes due to shoulder pain because he sleeps on his side. Wake time is 8:00 a.m.. He typically gets 8 hours of sleep per night. He takes naps in the day, and a short nap lasting 10-15 minutes may be refreshing. Habits:??Tobacco: former smoker Caffeine: 3 cups per day Alcohol: none for 2 years Recreational substances: none PMF Past Medical History Medical History Debility Chest pain Vitamin D deficiency Solitary pulmonary nodule Paresthesia of both hands Nicotine dependence, unspecified, uncomplicated COPD mixed type Chronic emphysema syndrome At risk for hepatitis Family History Family History Father Family history of heart disease in male family member before age 55, Onset Age: 58 Family history of cardiovascular disease Sibling Family history of cardiovascular disease Family history of elevated blood lipids Hypertension Diabetes mellitus Breast cancer Social History Social History Smoking packs per day: 2 Smoking cigarettes per day: 40.0 Years smoked: 50 Smoking pack-years: 100.00 Smoking status: Former smoker Tobacco type: cigarettes Second hand tobacco smoke exposure: Yes Smoking end date: 06/13/24 Alcohol intake: former Substance use: never Substance use type: does not use Do You Feel Safe in your Home?: Yes Lack of Transportation: No Lack of Food: Never True Current Housing: I Have Housing Concerned About Future Housing: No Difficulty Paying Gas/Electric Bills: No Difficulty Paying for Meds: No Currently Unemployed: No Education: Trade/Vocational Certificate Difficulty w/ Childcare or Family Care: No Spiritual care concerns: No Medications Home Medications ?Medication ?Instructions ?Recorded ?Confirmed ?Type aspirin 81 mg chewable tablet 81 mg PO DAILY 10/22/22 07/28/25 History carvedilol 3.125 mg tablet (Coreg) 6.25 mg (2 x 3.125 mg) PO BIDAC 06/30/24 07/28/25 Rx #60 tabs acetaminophen 500 mg tablet 1,000 mg PO Q6H PRN 07/07/24 07/28/25 History (Acetaminophen Extra Strength) lnejxpex-[id number] 120 mcg-lutein 1 tablet PO DAILY 07/07/24 07/28/25 History 150 mcg-herb 50 mg chewable tablet (Alive Men's 50 Plus Multivitamin) atorvastatin 80 mg tablet 80 mg PO HS #90 tabs 05/11/25 07/28/25 Rx losartan 25 mg tablet 25 mg PO DAILY 05/21/25 07/28/25 History spironolactone 25 mg tablet 25 mg PO DAILY 05/21/25 07/28/25 History budesonide 160 mcg-glycopyr 9 2 inh inhalation QAM AND QPM #10.7 06/03/25 07/28/25 Rx mcg-formot 4.8 mcg/actuation HFA grams inhaler (Breztri Aerosphere) doxycycline hyclate 100 mg tablet 100 mg PO BID #20 tabs 07/28/25 07/28/25 Rx food supplemt, lactose-reduced 1 ea PO DAILY PRN 07/28/25 07/28/25 History (Ensure oral liquid) Sleep Procedure A full night polysomnogram using the [employer] multi-channel system recorded the standard physiologic parameters including EEG, EOG, submentalis EMG, anterior tibialis EMG, EKG, body position, nasal and oral airflow using nasal pressure sensor and thermistor. Respiratory parameters of chest and abdominal movements were recorded with Respiratory Inductance Plethysmography belts. Oxygen saturation was recorded by pulse oximetry. Video monitoring was also performed. Sleep stages, periodic limb movements, and EEG arousals were scored in 30 second epochs according to the criteria of the AASM Scoring Manual. The Apnea-Hypopnea Index was calculated using CMS guidelines for definition of hypopnea while scoring respiratory events. He did not meet criteria early enough in the night, so this was conducted as a basic polysomnogram. Sleep Architecture The total recording time was 416.2 minutes. The total sleep time was 286.0 minutes. Sleep latency was 17.0 minutes. REM latency was 75.0 minutes. Sleep efficiency was 68.7%. The patient had 70 awakenings for an awakening index of 14.7. Wake after sleep onset time was 113.0 minutes. The patient spent 103.0 minutes, 36.0% of total sleep time in Stage N1. The patient spent 162.5 minutes, 56.8% in Stage N2. The patient spent no sleep time in Stage N3. The patient spent 20.5 minutes, 7.2% in Stage REM sleep. Respiratory Analysis The patient had 79 hypopneas, 6 obstructive apneas, no mixed apneas, and no central apneas for an overall Apnea Hypopnea Index of 17.6. The REM Apnea Hypopnea Index was 35.1. The NREM Apnea Hypopnea Index was 16.3. The patient had a Central Apnea Hypopnea Index of 1.3. There were no Respiratory Effort Related Arousals. The Respiratory Disturbance Index is 25.0 events per hour. There was no evidence of Raheel-Quinn Respirations. Arousals There were 181 total arousals for an arousal index of 38.0. There were 119 spontaneous arousals for an index of 25.0. There were 28 arousals due to respiratory events for an index of 5.9. There were 27 arousals due to periodic limb movements for an index of 5.7. There were 8 arousals due to isolated limb movements for an index of 1.7. Periodic Limb Movements The patient had 36 isolated limb movements with an index of 7.6. The patient had 196 periodic limb movements with an index of 41.1. Patient had a total of 232 limb movements with a total limb movement index of 48.7. Oximetry Data The patient had an average oxygen saturation of 92.7% in sleep with a minimum oxygen saturation of 85.0% and a maximum oxygen saturation of 98.0%. The patient had 84 oxygen desaturations that were 4% or greater resulting in an Oxygen Desaturation Index of 17.6. The patient spent [min] minutes, [%] of total sleep time with an oxygen saturation below 88%. Snoring Profile Snoring was mild to moderate. Cardiac Profile The EKG showed normal sinus rhythm, average pulse rate of 63 bpm with a minimum pulse of rate of 48 bpm and a maximum pulse rate of 91 bpm. No arrhythmias noted. EEG Profile Unremarkable, no evidence of seizures. Assessment and Plan Assessment and Plan (1) YARELY (obstructive sleep apnea): Code(s): G47.33 - Obstructive sleep apnea (adult) (pediatric) Status: Acute Assessment and Plan: This basic ploysomnogram on 07/05/25 shows moderate obstructive sleep apnea with an apnea hypopnea index of 17.6 and desaturation to 85% wth moderate to loud snoring. He did not have significant central apneas, the central apnea-hypopnea index was 1.3. I recommend that this patient be prescribed Resmed AirSense 11 AutoPAP 5-15 cm H2O, CPAP mask/filters/tubing and humidifier chamber. This should be used with all episodes of sleep. Compliance should be reviewed within 31-90 days of starting therapy for usage greater than 4 hours per night greater than 70% of the nights. The patient should be asked about symptoms such as excessive daytime sleepiness, quality of sleep, decreased nocturia, increased mental functioning such as memory, mood, and concentration. He had excessive limb movements during the night, his periodic limb movement long walks was 41.1, has periodic limb movement arousal index was 5.7. his sleep questionnaire does not indicate that he is bothered by kicking at night and only rarely has uncomfortable feelings in his legs at night. I am recommending wait till after he is treated with auto PAP and see if he has complaints of disrupted sleep. He had very fragmented sleep in the last half of the night. If he is compliant with therapy and his apnea-hypopnea index is in the normal range and still does not feel refreshed, I would check a ferritin level, proceed with maintaining ferritin > 75 ng/dL with iron, and offer non-pharmacologic methods to treat limb movements including daily exercise, stretching calf muscles before bed, avoiding excessive amounts of caffeine and alcohol, vitamin B supplementation, magnesium lotion massaged into legs before bed, and use of a weighted blanket. Data The data obtained during this sleep study is adequate for interpretation. Certification This sleep study has been reviewed by a board certified sleep medicine physician.
== END 2025-07-06 06:55 | disposition home or self-care (01) ==
LOC: ANHCSM 07:49
PROVIDERS: PCP Emergency Medicine; Visit Provider Physician Assistant
DX: G47.10 Hypersomnia, unspecified (principal); I25.9 Chronic ischemic heart disease, unspecified; I10 Essential (primary) hypertension
CPT/HCPCS: 95810

== ENCOUNTER 2025-07-28 14:00 | Outpatient (NON) | payer MEDICARE, SELFPAY ==
--- OUTSIDE RECORDS SUMMARY | 2025-07-28 15:20 | XMS_ITS | Clinical Summary ---
Author Organization [facility] Address [address] [place] [address] Care Team Providers Care Mixing Engineer Name Role Phone Unavailable Primary Care Provider Unavailabl e Social History Tobacco Use Types Packs/Day Years Used Date Smoking Tobacco: Never Assessed Sex and Gender Information Value Date Recorded Sex Assigned at Not on file Legal Sex Male 11:16 AM EDT Gender Identity Not on file Sexual Orientation Not on file Plan of Treatment Health Maintenance Due Date Last Done Comments CT Colonography 1958 Colonoscopy 1958 Colorectal Cancer Screening 1958 FIT-DNA (Cologuard) 1958 FIT 1958 FOBT 1958 Sigmoidoscopy 1958 Annual Visit Topic 1959 MMR Vaccines (1 of 1 - Stand amber series) 1959 Hepatitis C Screening 02/07/1976 DTaP/Tdap/Td Vaccines (1 - Tdap) 1977 Pneumococcal Vaccine: 65+ Ye ars (1 of 2 - PCV) 02/07/2008 PSA Test 2013 HIB Vaccines Aged Out No longer eligi ble based on patient's age to complete this topic HPV Vaccines Aged Out No longer eligi ble based on patient's age to complete this topic Hepatitis A Vaccines Aged Out No long er eligible based on patient's age to complete this topic Hepatitis B Vaccines Aged Out No long er eligible based on patient's age to complete this topic IPV Vaccines Aged Out No longer eligi ble based on patient's age to complete this topic Meningococcal Vaccine Aged Out No lady mimi eligible based on patient's age to complete this topic
--- OUTSIDE RECORDS SUMMARY | 2025-07-28 15:20 | XMS_ITS | Clinical Summary ---
Author Organization [facility] Address [address] [place] [id number] Care Team Providers Care Consultant Nurse Name Role Phone Unavailable Primary Care Provider [...] Vaccines (1 of 2) 02/07/2008 COVID-19 Vaccine (1 - 2023-2 5 season) 2025 RSV Immunization or 60+ Years (1 - [...]
--- OUTSIDE RECORDS SUMMARY | 2025-07-28 15:20 | XMS_ITS | Encounter Summary ---
Author Organization [facility] Healthcare Address [address] [place] [address] Care Team Providers Care Associate Juvenile Court Judge Name Role Phone Allen Humphrey MD Primary Care Provide r Allen Humphrey MD Unavailable [phone] Encounter Details Date Type Department Care Team (Late st Contact Info) Description 01/20/2025 Orders Only [facility] Health Information Management [address] [place] [id number] Scanning, Provider Social History Tobacco Use Types Packs/Day Years Used Date Smoking Tobacco: Former Cigarettes 1.5 15 Q uit: 06/13/2024 Smokeless Tobacco: Never [facility] Utilities Answer Date Recorded In the past 12 months has [employer], gas, oil, or water [employer] threatened to shut off services in your [...] week 06/15/2024 How often do you attend [facility] or faith services? Never 06/15/2024 Do you belong to any clubs o r organizations such as buddhism groups, unions, fraternal or athletic groups, or [...] any time in the past 12 m [facility], were you homeless or living in [...] Region Laterality Modality Other us Provider Scanning Edited Result - Final documented in this encounter Visit Diagnoses Not on filedocumented in this encounter Care Teams Associate Juvenile Court Judge Relationship Specialty Start Date End Date Allen Humphrey MD [address] [place] [address] PCP - General Emergency Medicine 05/25/24 Allen Humphrey MD [address] [place] [address] 05/25/24 documented as of this encounter
--- OUTSIDE RECORDS SUMMARY | 2025-07-28 15:20 | XMS_ITS | Clinical Summary ---
Author Organization [facility] Virtual Care Address [address] [place] [phone] Phone Care Team Providers Care Purification Operator Name Role Phone Allen Humphrey MD Primary Care Provide r Allen Humphrey MD Unavailable Allergies Active Allergy Reactions Criticality Noted Date Comments Guaifenesin Angioedema High 08/31/2024 Medications atorvastatin (LIPITOR) 80 mg tabletIndicatio ns:Coronary artery disease involving [place] coronary artery of [place] heart without angina pectoris Take 1 tablet (80 mg total) by mouth nightly 90 tablet 3 07/06/2024 Active aspirin 81 mg enteric coated tablet Take 1 tablet (81 mg total) by mouth daily 30 tablet 11 01/13/2025 6 Active losartan (COZAAR) 25 mg tablet Take 1 tablet (25 mg total) by mouth daily 30 tablet 01/13/2025 6 Active spironolactone (ALDACTONE) 25 mg tablet Take 1 tablet (25 mg total) by mouth daily 30 tablet 11 01/13/2025 6 Active [id number]-ogra -Lmfolate-algal 27 mg iron-1.13 mg-581.92 mg capsule Take by mouth Active clopidogreL (PLAVIX) 75 mg tablet Take 1 tablet (75 mg total) by mouth daily Stop taking at the end of 05/18/2025 Active carvediloL (COREG) 6.25 mg tabletIndicatio ns:Coronary artery disease involving [place] coronary artery of [place] heart without angina pectoris Take 1 tablet (6.25 mg total) by mouth 2 (two) times a day with meals 180 tablet 3 06/07/2025 Active Active Problems Problem Noted Date Diagnosed Date Chronic obstructive pulmonary disease 05/18/2025 Coronary artery disease invo lving [place] coronary artery of [place] heart without angina pectoris 05/18/2025 Anoxic brain damage 06/16/2024 Ventricular fibrillation 06/13/2024 Encounters Date Type Department Care Team Description 06/08/2025 Results Follow-Up [facility] [address] [place] [phone] Ricci Mclain MD Pro B-type natriuretic peptide, CBC with auto differential, Comprehensive metabolic panel 05/25/2025 Orders Only [facility] [address] [place] [phone] Ricci Mclain MD 05/18/2025 8:00 AM CDT Office Visit [facility] [address] [place] [phone] Elisa Meneses NP Coronary artery disease involving [place] coronary artery of [place] heart without angina pectoris (Primary Dx); Chronic obstructive pulmonary disease, unspecified COPD type (HCC); Class 1 obesity due to excess calories with serious comorbidity and body mass index (BMI) of 31.0 to 31.9 in adult from Last 3 Months Medical History Medical History Date Comments Heart disease 06/13/2024 Family History Medical History Relation Name Comments Diabetes Brother 1 Nadir Jr. Hypertension Brother 2 Nadir Jr Heart attack Father Nadir Sr. Cancer Sister Marisela Relation Name Status Comments Brother 1 Nadir Jr. Brother 2 Nadir Jr Father Nadir Sr. Sister Marisela Social History Tobacco Use Types Packs/Day Years Used Date Smoking Tobacco: Former Cigarettes 1.5 15 Q uit: 06/13/2024 Smokeless Tobacco: Never [facility] Utilities Answer Date Recorded In the past [...] often do you attend chur ch or advent services? Never 06/15/2024 Do you belong to any clubs o r organizations such as taoist groups, unions, fraternal or athletic groups, or [...] any time in the past 12 m [facility], were you homeless or living in a [place] [facility] (including now)? No 06/15/2024 Personal Safety Answer [...] Assessment 06/23/2025 06/23/2024 Influenza Vaccine (#1) 2025 , 09/18/2022, 09/11/2021, Additional history exists Prostate Cancer Screening-PSA 05/21/2027 05/21/2025 Medical Devices Implanted Type Area Toy Electric Train Repairer Device Identifier Shelf Expiration Date Model / Serial / Lot Medtronic Card Vasc Surgery 3.0 X 18mm Carlos Hancock Rx Coronary Stent [id number] - [id number] Implanted:Qty: 1 on 06/13/2024 by Ricci Mclain MD at [facility] Medtronic Card Vasc Surgery 04/02/2027 [id number] / / [id number] Mynx Control 6-7fr 2 Mode Balloon Catheter Sealant Lock Syringe [id number] - [id number] Implanted:Qty: 1 on 06/13/2024 by Ricci Mclain MD at [facility] [employer] 09/24/2024 [id number] / / [id number] G[employer] Vascular System Closure Repair Femoral Artery Suture Mediated Perclose Prostyle 01974-50 - [id number] Implanted:Qty: 1 on 06/13/2024 by Ricci Mclain MD at [facility] [employer] 03/24/2026 [id number] / / [id number] [employer] V[employer] System Closure Repair Femoral Artery Suture Mediated Perclose Prostyle 72993-92 - [id number] Implanted:Qty: 1 on 06/13/2024 by Ricci Mclain MD at [facility] [employer] 03/24/2026 [id number] / / [id number] [employer] Impella Cp Percutaneous Left Ventricular Assist Device [id number] - [id number] - [id number] Implanted:Qty: 1 on 06/13/2024 by Ricci Mclain MD at [facility] [employer] 03/24/2026 [id number] / [id number] / [id number] Procedures Procedure Name Priority Date/Time Associated Diagnosis Comments HEMOGLOBIN A1C Routine 05/25/2025 PSA, TOTAL Routine 05/21/2025 5:34 PM CDT LIPID PANEL Routine 05/21/2025 5:33 PM CDT VITAMIN D 25 HYDROXY Routine 05/21/2025 5:33 PM CDT COMPREHENSIVE METABOLIC PANEL Routine 05/21/2025 Coronary artery disease involving [place] coronary artery of [place] heart without angina pectoris Shortness of breath CBC WITH AUTO DIFFERENTIAL Routine 05/21/2025 Coronary artery disease involving [place] coronary artery of [place] heart without angina pectoris Shortness of breath PRO B-TYPE NATRIURETIC PEPTIDE Routine 05/21/2025 Coronary artery disease involving [place] coronary artery of [place] heart without angina pectoris Shortness of breath from Last 3 Months Results * Hemoglobin A1c (05/25/2025) SCRIBED Hemoglobin A1c 5.5 4.0 - 5.6 % EXTERNAL LAB Blood Result [facility] Provider MD LAB BLOOD ORDERABLES Edit ed Result - Final EXTERNAL LAB * PSA, total (05/21/2025 5:34 PM CDT) Blood Result [facility] Provider LAB BLOOD ORDERABLES Sarah l Result * Vitamin D 25 hydroxy (05/21/2025 5:33 PM CDT) SCRIBED 25-OH Vitamin D 40.1 30 - 100 ng/mL EXTERNAL LAB Blood Result [facility] MD LAB BLOOD ORDERABLES Edit ed Result [...] EXTERNAL LAB Comment:Not performed by lab Blood us Historical Provider MD LAB BLOOD ORDERABLES Edit ed Result - Final EXTERNAL LAB * Pro B-type natriuretic peptide (05/21/2025) Pathologist [facility] SCRIBED NT PROBNP 49 19.9 - 100 pg/mL EXTERNAL LAB Blood 05/21/2025 Ricci Mclain MD LAB BLOOD ORDERABLES Final Resul t EXTERNAL LAB * CBC with auto differential (05/21/2025) Pathologist [facility] SCRIBED WBC 7.0 3.8 - 9.9 K/cumm [...] - 0.1 K/cumm EXTERNAL LAB Blood 05/21/2025 Ricci Mclain MD LAB BLOOD ORDERABLES Final Resul t Performing Organization Address [facility] Phone Number EXTERNAL LAB * Comprehensive metabolic panel (05/21/2025) [...] N/A EXTERNAL LAB SCRIBED eGFR in NonAfrican [place] >60 > or = 60 EXTERNAL LAB Blood 05/21/2025 Ricci Mclain MD LAB BLOOD ORDERABLES Final Resul t EXTERNAL LAB from Last [address] [facility] MEDICARE SUPPLEMENT MEDICARE [facility] [employer] [place] [employer] [place] Advance Directives For more information, please contact: [phone] * Full Code (Latest Code Status on File) Date Activated Date Inactivated Comments 06/13/2024 5:25 AM 06/23/2024 3:26 PM * Full Code Date Activated Date Inactivated Comments 06/13/2024 2:54 AM 06/13/2024 5:25 AM Care Teams Purification Operator Relationship Specialty Start Date End Date Allen Humphrey MD [address] [place] [address] PCP - General Emergency Medicine 05/25/24 Allen Humphrey MD [address] [place] [address] 05/25/24
--- OUTSIDE RECORDS SUMMARY | 2025-07-28 15:20 | XMS_ITS | Encounter Summary ---
Author Organization [facility] Healthcare Address [address] [place] [address] Care Team Providers Care Scooping Machine Tender Name Role Phone Allen Humphrey MD Primary Care Provide r Allen Humphrey MD Unavailable [phone] Encounter Details Date Type Department Care Team (Latest Contact Info) Description 06/08/2025 Results Follow-Up [facility] Cardiology [address] [place] [phone] Ricci Mclain MD [address] [place] [address], [address] [address] Pro B-type natriuretic peptide, CBC with auto differential, Comprehensive metabolic panel Social History Tobacco Use Types Packs/Day Years Used Date Smoking Tobacco: Former Cigarettes 1.5 15 Q uit: 06/13/2024 Smokeless Tobacco: Never [facility] Utilities Answer Date Recorded In the past 12 months has [email or web address], gas, oil, or water company threatened [...] often do you attend chur ch or mandaen services? Never 06/15/2024 Do you belong to any clubs o r organizations such as anabaptism groups, unions, fraternal or athletic groups, or [...] in the past 12 m [facility], were you homeless or living in a [facility] (including now)? No 06/15/2024 Personal Safety Answer [...] on filedocumented in this encounter Care Teams Scooping Machine Tender Relationship Specialty Start Date End Date Allen Humphrey MD [address] [place] [address] PCP - General Emergency Medicine 05/25/24 Allen Humphrey MD [address] [place] [address] 05/25/24 documented as of this encounter
== END 2025-07-28 14:01 | disposition home or self-care (01) ==
LOC: ANHGOSHLAB 14:01
PROVIDERS: PCP Emergency Medicine; Visit Provider Otolaryngology
DX: J01.90 Acute sinusitis, unspecified (principal)
CPT/HCPCS: 87070; 87075; 87186; 87205

== ENCOUNTER 2025-10-06 10:00 | Outpatient (RCR) | payer MEDICARE, SELFPAY ==
--- NOTE | 2025-08-17 12:53 | OPREHPOC ---
Outpatient Therapy Plan of Care This is a Multidisciplinary Plan of Care that may contain components documented by all disciplines (PT, OT, and ST.) ST Problem 1 ST Problem #[address] Goal 1 Goal / Goal Update The patient will participate in home programming to improve carry over/generalization of skills to the home environment Target Visit [address] Problem #[address] Goal 1 Goal / Goal Update Voice: 1. The patient will complete a HEP for optimal voicing with 90% compliance 2. The patient will complete simple vocal adduction exercises with 90% accuracy. 3. The patient will sustain optimal voicing as measure by a voice meter for prolonged speech 4. The patient will complete diaphragmatic breathing exercises 90% 5. The patient will improve self- monitoring of vocal quality, onset of phonation, volume, and laryngeal tension during conversation voice use 80 % minimal cues. Target Visit 8 ST Goal 2 Progress Partially Met
--- NOTE | 2025-08-17 12:53 | STOPEVAL1 ---
Assessment and note entered by Ruth Acharya, SOFT SUGAR CUTTER Evaluation Information Assessment Status Evaluation Diagnosis R49.9 R49.0 Subjective Information The patient is a 65 year old male referred for outpatient speech therapy following an in office consult with his ENT. Speech services recommended to address Dysphonia. Per patietn and spouse reports they have noticed a strain and change in his vocal quality since intubation during surgery approximately 1 year ago. The patient does not report noting a difference in vocal strength morning vs afternoon, and is retired so utilizes his voice primarily for simple daily exchanges. Reported Pain Level Pain Score 0: Self Report Assessment ST Clinical Summary The patient is a 65-year-old male referred for outpatient speech therapy following an in office consult with his ENT. Speech services recommended to address Dysphonia and a small glottic gap. Per patient and spouse reports they have noticed a strain and change in his vocal quality since intubation during surgery approximately 1 year ago . The patient does not report noting a difference in vocal strength morning vs afternoon, and is retired so utilizes his voice primarily for simple daily exchanges. The patient was administered the [facility] Voice Evaluation and Hygiene Assessment. Hygiene: The patient is a former smoker, consumes approximately 3 cups of coffee a day, and 3 glasses of water per day, currently utilizing Flonase for allergies and sinus drainage. Results of the Voice Evaluation: Respiration: Equal MPT (Maximum Phonation Time) for voiced and voiceless s/z 20 seconds, sustained /a/ and /e/ 15 -20 seconds respectively with good breath support for simple exchanges. Some loss or respiration support with prolonged counting. Phonation: The patient demonstrates a harsh vocal quality with prolonged or extensive vocalization. Pitch: Optimal level of 120-150 hertz with counting, phrases, and sentences. Does have difficulty with sustaining pitch hard /e/ production. Voiced /ah/ for 15-20 seconds without pitch breaks, voiced /e / for 10-15 seconds with 1-2 pitch breaks noted via voice meter in close proximity. Loudness: Able to produce a 20 second sustained voicing for /ah/ and /e/ at 65-70 decibels. Passage and conversation speech produced at 60-65 decibels in close proximity as measured by a voice meter. Discussed treatment with patient and spouse following initial evaluation. Recommending outpatient speech services 1x a week x 8 visits to address reducing laryngeal tension with cervical exercises, improving respiration support with diaphragmatic breathing and respiration exercises for air coordination, initiating easy onset to reduce laryngeal tension with simple vocal adduction exercises. Plan of Care Interventions Treatment of Voice ST Services Indicated Yes These treatments will address the objective and functional deficits as defined above. The patient will be advanced safely and appropriately in order for the patient to progress towards his/her prior level of function. Additional exercises will be introduced and as well as a comprehensive home exercise program upon discharge, if needed, ?to ensure carryover of functional gains achieved in the clinic. This treatment plan has been reviewed and agreement upon by the patient.
--- NOTE | 2025-09-01 08:13 | PCSTNOTE ---
Patient called & cancelled scheduled appointment this date due to family emergency
--- NOTE | 2025-10-06 10:31 | STOPDC ---
Assessment and note entered by Ruth Acharya TIRE SERVICE TECHNICIAN Evaluation Information Assessment Status Discharge Reported Pain Level Pain Score 0: Self Report Assessment ST Clinical Summary Initial Evaluation: The patient is a 65-year-old male referred for outpatient speech therapy following an in office consult with his ENT. Speech services recommended to address Dysphonia and a small glottic gap. Per patient and spouse reports they have noticed a strain and change in his vocal quality since intubation during surgery approximately 1 year ago . The patient does not report noting a difference in vocal strength morning vs afternoon, and is retired so utilizes his voice primarily for simple daily exchanges. The patient was administered the [facility] Voice Evaluation and Hygiene Assessment. Hygiene: The patient is a former smoker, consumes approximately 3 cups of coffee a day, and 3 glasses of water per day, currently utilizing Flonase for allergies and sinus drainage. Results of the Voice Evaluation: Respiration: Equal MPT (Maximum Phonation Time) for voiced and voiceless s/z 20 seconds, sustained /a/ and /e/ 15 -20 seconds respectively with good breath support for simple exchanges. Some loss or respiration support with prolonged counting. Phonation: The patient demonstrates a harsh vocal quality with prolonged or extensive vocalization. Pitch: Optimal level of 120-150 hertz with counting, phrases, and sentences. Does have difficulty with sustaining pitch hard /e/ production. Voiced /ah/ for 15-20 seconds without pitch breaks, voiced /e / for 10-15 seconds with 1-2 pitch breaks noted via voice meter in close proximity. Loudness: Able to produce a 20 second sustained voicing for /ah/ and /e/ at 65-70 decibels. Passage and conversation speech produced at 60-65 decibels in close proximity as measured by a voice meter. Discussed treatment with patient and spouse following initial evaluation. Recommending outpatient speech services 1x a week x 8 visits to address reducing laryngeal tension with cervical exercises, improving respiration support with diaphragmatic breathing and respiration exercises for air coordination, initiating easy onset to reduce laryngeal tension with simple vocal adduction exercises. 10/06/25: Discharge: Upon discharge all goals achieved. Patient has HEP which he will continue and has been compliant 90% . utilizing optimal voice 905 of time. Noted improvement with implementation of vocal adduction exercise, easy onset of phonation and cervical relaxation exercises. Thanks for the consult Plan of Care ST Services Indicated No
== END 2025-10-06 12:55 | disposition home or self-care (01) ==
LOC: ANHST 10:00
PROVIDERS: PCP Emergency Medicine; Visit Provider Otolaryngology
DX: R49.9 Unspecified voice and resonance disorder (principal); R49.0 Dysphonia
CPT/HCPCS: 92507; 92524